=== PATIENT | male | born 1940 | race Caucasian/White ===

== ENCOUNTER 2018-12-11 09:45 | Inpatient (IN) | payer MEDICARE ==
[~2018-12-11] VITALS: Ht 177.8 cm; Wt 61.8 kg
[~2018-12-11 09:45] MED LIST changes: -EPA FISH OIL1 SGL PO; -GAS RELIEF180 MG PO; -IPRATROPIUM BROM3 M1 IH; -IRON TABLETS325 MG PO
--- NOTE | 2018-12-11 11:00 | NUR ---
Pt arrived to room 352 via with [facility] staff. Pt transferred from the WC to the chair with the assistance on one. Oriented to room and call light system. Will complete assessment. Pt is sitting up in the chair and he denies further needs. Call light within reach, will continue to monitor.
[2018-12-11 11:02] VITALS: BP 93/50; PULSE 83; TEMP 98.6
[2018-12-11 11:42] LABS: MEAN CELL VOLUME 100 fl (80.0-100.0); MEAN CORPUSCULAR HGB CONC 32 g/dl (33.0-37.0); PLATELET COUNT 297 K/mm3 (130-400); RED BLOOD COUNT 2.42 M/mm3 (4.20-5.60); REDCELL DISTRIBUTION WIDTH-CV 15.6 % (11.5-14.5)
[2018-12-11 11:43] LABS: HEMATOCRIT 24.1 % (42.0-52.0); HEMOGLOBIN 7.7 g/dl (13.5-18.0); MEAN CORPUSCULAR HEMOGLOBIN 32 pg (27.0-31.0)
[2018-12-11 11:51] LABS: CALCIUM 8.2 mg/dL (8.4-10.2); CREATININE, serum 1.03 (0.66-1.25); POTASSIUM 3.9 mmol/L (3.4-5.0); TOTAL PROTEIN 6.4 gm/dL (6.4-8.2)
[2018-12-11 11:55] LABS: ANISOCYTOSIS 1+; BAND 2 % (0-10); LYMPHOCYTE 1 % (20.0-51.0); MYELOCYTE 1 % (0-0); NEUTROPHILS 95 % (42.0-75.2); PLATELET ESTIMATE NORMAL (NORMAL)
[2018-12-11 11:57] LABS: TOXIC GRANULATION PRESENT
[2018-12-11] MEDS ORDERED: IRON TABLETS325 MG PO (12:30)
[2018-12-11] MEDS ORDERED: EPA FISH OIL1 SGL PO (12:32)
[2018-12-11] MEDS ORDERED: IPRATROPIUM BROM3 M1 IH (12:46)
[2018-12-11] MEDS ORDERED: RT ADVAIR 228 DISKUS IH (12:52)
[2018-12-11] MEDS ORDERED: GAS RELIEF180 MG PO (13:46)
[2018-12-11 15:41] LABS: GLUCOSE,PLEURAL FLUID 108 mg/dL; TOTAL PROTEIN,PLEURAL FLUID 4.2 gm/dL
[2018-12-11 17:34] VITALS: BP 97/74; PULSE 103; TEMP 98.8
--- NOTE | 2018-12-11 18:59 | NUR ---
Since arriving to the floor the pt has been resting on and off. He had R sided thoracentesis this afternoon and is feeling well afterwards. No increased need for O2 determined. Pt has had family at the bedside; all questions answered. Pt is sitting up in the bed eating his dinner at this time and he denies further needs. Call light within reach. Report given to SCOTTY Alicia.
[2018-12-11 19:47] VITALS: BP 132/56; PULSE 113; TEMP 98.2
--- NOTE | 2018-12-11 21:00 | NUR ---
Completed assessment and medication administration; PT tolerated call cares well; PT A&Ox4, BS active x4, lungs CTAB with RLL diminished, right hip incision well approximated without acute S/S of infection, redness to right coccyx and buttock without blanching; PT continues to have NS running at 60ml/hr to RFA IV; 2L of fluid removed from thoracentesis on 12/11/18; No further acute changes or concerns reported or assessed at time of exit; PT able to return to a comfortable position in bed with personal items and call light within reach; Will continues to monitor. CDA
[2018-12-11 23:46] VITALS: BP 132/66; PULSE 100; TEMP 98
[2018-12-12] VITALS (10 sets, daily range): BP systolic 109–143; BP diastolic 51–77; PULSE 81–91; TEMP 97–98.3
--- NOTE | 2018-12-12 02:12 | NUR ---
PATIENT REFUSED SVN TREATMENT AND WILL CALL CALF SKINNER IF NEEDED.
[2018-12-12 07:14] LABS: BASO % 0.1 % (0.0-2.0); EOS % 0.1 % (0-4.0); GRAN # 5.9 (1.4-6.5); GRAN % 87.7 % (42.2-75.2); LYMPH # 0.3 (1.2-3.4); MEAN CELL VOLUME 97 fl (80.0-100.0); MEAN CORPUSCULAR HGB CONC 32 g/dl (33.0-37.0); MEAN PLATELET VOLUME 10.2 fl (7.4-10.4); MONO # 0.5 (0.1-0.6); MONO % 7.1 % (1.7-9.3); PLATELET COUNT 280 K/mm3 (130-400); RED BLOOD COUNT 2.33 M/mm3 (4.20-5.60); REDCELL DISTRIBUTION WIDTH-CV 15.6 % (11.5-14.5)
[2018-12-12 07:18] LABS: HEMATOCRIT 22.7 % (42.0-52.0); HEMOGLOBIN 7.3 g/dl (13.5-18.0); MEAN CORPUSCULAR HEMOGLOBIN 31 pg (27.0-31.0)
[2018-12-12 07:39] LABS: CALCIUM 8.1 mg/dL (8.4-10.2); CREATININE, serum 0.73 (0.66-1.25); POTASSIUM 3.9 mmol/L (3.4-5.0)
--- NOTE | 2018-12-12 10:12 | NUR ---
WILMER and SW student met with the patient to discuss discharge plan. The patient has been residing at [facility] for a SNF stay. The patient reports that he plans to return back to [facility] upon discharge. WILMER presented and explained the patient choice form to the patient. The patient verbalized understanding, signed, and he was provided a copy. The patient does not have advanced directives in EMR, but he states that he does have them completed and that [facility] should have a copy of his DPOA-HC. He states that his niece, Reanna, is his DPOA-HC and that she lives here in [place]. WILMER attempted to contact Juan David at [facility] to request a copy and to update. WILMER left a voicemail. SW to fax updates to [facility] and continue to follow.
--- NOTE | 2018-12-12 12:02 | NUR ---
Assessment complete and charted. Patient A&O, denies pain or discomfort. VSS 1L NC no report SOB. IV CDI. Port left upper chest, not accessed. Patient sitting up in recliner. no further needs expressed from patient. Call light within reach
--- NOTE | 2018-12-12 13:05 | NUR ---
PT INTO ROOM, PLACED ON THE CT BED, MONITORING EQUIPMENT PLACED.
--- NOTE | 2018-12-12 13:20 | NUR ---
PT WAS GIVEN 0.5 MG VERSED A ND 25 MCG FENTANYL
--- NOTE | 2018-12-12 13:25 | NUR ---
PROCEDURE COMPLETED. PT INSTRUCTED TO BE VERY CAREFUL OF THE CHEST TUBE. PT VERBALZIED UNDERSTANDING. PT TAKEN UPSTAIRS IN WHEELCHAIR.
--- NOTE | 2018-12-12 13:47 | NUR ---
CALLED REPORT TO BINU FAJARDO
--- NOTE | 2018-12-12 15:04 | NUR ---
Juan David, at [facility], contacted WILMER and informed that they do not have a copy of his DPOA-HC. WILMER contacted the patient's niece, Reanna. Reanna reports that the patient actually does not have a DPOA-HC completed and that they have been meaning to do one and were interested in completing one here. WILMER provided a DPOA-HC form to the patient. The patient designated his niece (Reanna) and nephew (Donovan). SW and RT witnessed the patient's signature. The patient and patient's niece were provided with the original and some copies. A copy was placed in the patient's chart and WILMER faxed [facility] a copy. WILMER also faxed updates to [facility]. WILMER to continue to follow.
--- NOTE | 2018-12-12 19:00 | NUR ---
REPORT GIVEN TO SCOTTY WILLAMS.
[2018-12-13 00:09] VITALS: BP 129/67; PULSE 82; TEMP 97.9
--- NOTE | 2018-12-13 01:21 | NUR ---
Completed assessment and medication administration; PT tolerated all cares well; PT denies further needs or concerns at time of exit; PT A&Ox4, BS active x4, Rt heimlich valve chest tube in place, minimal c/o RLE pain, left side unaccessed port, RT sided pacemaker; PT able to return to comfortable position in bed with personal items and call light within reach; Will continue to monitor. CDA
--- NOTE | 2018-12-13 03:05 | NUR ---
PT resting well in bed; NS running at 60ml/hr to RFA; No further assessed or verbalized concerns at times of rounds; PT assisted to a comfortable position in bed with personal items and call light within reach; Will continue to monitor. CDA
[2018-12-13 03:50] VITALS: BP 117/67; PULSE 81; TEMP 98
--- NOTE | 2018-12-13 06:41 | NUR ---
Report given to SCOTTY Pires; No significant changes or concerns at time of shift change. CDA
[2018-12-13 07:36] VITALS: BP 113/62; PULSE 85; TEMP 98.7
[2018-12-13 07:47] LABS: BASO % 0.3 % (0.0-2.0); EOS % 0.3 % (0-4.0); GRAN # 5.4 (1.4-6.5); GRAN % 83.9 % (42.2-75.2); LYMPH # 0.4 (1.2-3.4); LYMPH % 5.6 % (20.0-51.0); MEAN CELL VOLUME 99 fl (80.0-100.0); MEAN CORPUSCULAR HGB CONC 31 g/dl (33.0-37.0); MEAN PLATELET VOLUME 10.2 fl (7.4-10.4); MONO # 0.6 (0.1-0.6); PLATELET COUNT 302 K/mm3 (130-400); RED BLOOD COUNT 2.52 M/mm3 (4.20-5.60); REDCELL DISTRIBUTION WIDTH-CV 15.7 % (11.5-14.5)
[2018-12-13 07:48] LABS: HEMATOCRIT 24.9 % (42.0-52.0); HEMOGLOBIN 7.8 g/dl (13.5-18.0); MEAN CORPUSCULAR HEMOGLOBIN 31 pg (27.0-31.0)
[2018-12-13 07:53] LABS: CALCIUM 8.4 mg/dL (8.4-10.2); CREATININE, serum 0.71 (0.66-1.25); POTASSIUM 3.8 mmol/L (3.4-5.0)
[2018-12-13 10:59] VITALS: BP 111/63; PULSE 86; TEMP 98.7
[2018-12-13 15:23] VITALS: BP 121/53; PULSE 88; TEMP 97.8
[2018-12-13 19:44] VITALS: BP 129/70; PULSE 94; TEMP 97.3
--- NOTE | 2018-12-13 21:00 | NUR ---
Completed assessment and medication administration; PT tolerated all cares well; Coccyx dressing changed; NS continues to run at 60ml/hr to RFA IV; PT A&Ox4, BS active x4, lungs CTAB with bilateral diminished bases, O2 via NC; No further assessed or verbalized concerns at time of exit; PT assisted to comfortable position in bed with personal items and call light within reach; Tentative plan for continued Hiemlich chest tube for improving right side pneumothorax; reimaging to reassess
[2018-12-14] VITALS (10 sets, daily range): BP systolic 113–141; BP diastolic 60–79; PULSE 76–113; TEMP 97.8–98.7
--- NOTE | 2018-12-14 03:18 | NUR ---
PT resting well in bed; NS running at 60ml/hr as ordered; No further assessed or verbalized concerns at time of rounds; PT resting in comfortable position in bed with personal items and call light within reach; Will continue to monitor. CDA
--- NOTE | 2018-12-14 06:48 | NUR ---
Report given to SCOTTY Pires and SCOTTY Bach; No significant change or concerns at time of shift change. CDA
[2018-12-14 08:51] LABS: BASO % 0.3 % (0.0-2.0); EOS % 0.4 % (0-4.0); GRAN # 5.6 (1.4-6.5); GRAN % 80.5 % (42.2-75.2); LYMPH # 0.5 (1.2-3.4); LYMPH % 7.8 % (20.0-51.0); MEAN CELL VOLUME 98 fl (80.0-100.0); MEAN CORPUSCULAR HGB CONC 32 g/dl (33.0-37.0); MEAN PLATELET VOLUME 9.9 fl (7.4-10.4); MONO # 0.7 (0.1-0.6); MONO % 10.4 % (1.7-9.3); PLATELET COUNT 320 K/mm3 (130-400); RED BLOOD COUNT 2.69 M/mm3 (4.20-5.60); REDCELL DISTRIBUTION WIDTH-CV 15.9 % (11.5-14.5)
[2018-12-14 08:54] LABS: HEMATOCRIT 26.3 % (42.0-52.0); HEMOGLOBIN 8.3 g/dl (13.5-18.0); MEAN CORPUSCULAR HEMOGLOBIN 31 pg (27.0-31.0)
[2018-12-14 09:01] LABS: CALCIUM 8.6 mg/dL (8.4-10.2); CREATININE, serum 0.72 (0.66-1.25)
--- NOTE | 2018-12-14 20:15 | NUR ---
Patient helped from recliner to bed, assessment copmleted. C/O 6/10 pain to right hip, given pain medication. VSS, afebrile. On 2 L oxygen via NC. IVF flushed, no complications. No further needs at this time.
[2018-12-15 03:56] VITALS: BP 137/71; PULSE 82; TEMP 98.4
--- NOTE | 2018-12-15 04:53 | NUR ---
Pt slept on/off last night, VSS, afebrile. NO needs at this time.
--- NOTE | 2018-12-15 06:52 | NUR ---
REPORT GIVEN TO SCOTTY LIU
[2018-12-15 07:50] LABS: BASO % 0.4 % (0.0-2.0); EOS # 0.1 (0.0-0.7); EOS % 1.2 % (0-4.0); GRAN # 5.9 (1.4-6.5); GRAN % 76.8 % (42.2-75.2); LYMPH # 0.8 (1.2-3.4); LYMPH % 10.6 % (20.0-51.0); MEAN CELL VOLUME 99 fl (80.0-100.0); MEAN CORPUSCULAR HGB CONC 31 g/dl (33.0-37.0); MEAN PLATELET VOLUME 10.2 fl (7.4-10.4); MONO # 0.8 (0.1-0.6); MONO % 9.8 % (1.7-9.3); PLATELET COUNT 353 K/mm3 (130-400); RED BLOOD COUNT 2.78 M/mm3 (4.20-5.60); REDCELL DISTRIBUTION WIDTH-CV 15.9 % (11.5-14.5)
[2018-12-15 07:55] LABS: HEMATOCRIT 27.5 % (42.0-52.0); HEMOGLOBIN 8.5 g/dl (13.5-18.0); MEAN CORPUSCULAR HEMOGLOBIN 31 pg (27.0-31.0)
--- NOTE | 2018-12-15 08:03 | NUR ---
Pt assessment complete. Pt sitting up in the chair upon entry, he is A/O x3. His breathing is even and unlabored on 2L O2 via NC. Pt has occasional dysnpea on exertion. Chest tube dressing has small amount of blood. Pt has occasional pain to this site with coughing. Also reporting pain to the R hip, requesting PRN pain medications before PT. POC discussed with patient, plan to do a thoracentesis this AM. Pt denies needs, call light within reach. Will continue to monitor.
[2018-12-15 08:11] LABS: CALCIUM 8.7 mg/dL (8.4-10.2); CREATININE, serum 0.9 (0.66-1.25)
[2018-12-15 08:47] VITALS: BP 113/67; PULSE 94; TEMP 98.6
--- NOTE | 2018-12-15 09:50 | NUR ---
DR MELENDEZ ORDERED CPFT PATIENT HAD ALREADY HAD INHALERS AND BREATHING TREATMENT DR MELENDEZ OK WITH JUST DOING PRETESTING ON CPFT.
[2018-12-15 11:59] VITALS: BP 117/60; PULSE 92; TEMP 97.7
--- NOTE | 2018-12-15 14:28 | NUR ---
Pt assisted in walking down the hallway to surgical desk and back. Pt ambulated well, mild dyspnea present. Pt denies pain. Pt sitting in recliner, call light within reach.
[2018-12-15 15:33] VITALS: BP 102/70; PULSE 107; TEMP 98
--- NOTE | 2018-12-15 16:42 | NUR ---
The patient is to transfer to [facility] today, 12/15. The patient's nurse notified the patient's nephew. SW attempted to contact Juan David at [facility] to update. WILMER left a voicemail. No additional needs at this time.
--- NOTE | 2018-12-15 17:00 | NUR ---
POC discussed with patient, his niece was updated per patient's request. Information on patient's diagnosis given to the patient. He denies any further needs, call light within reach.
--- NOTE | 2018-12-15 19:17 | NUR ---
Report given to Donna at [facility]. Pt had uneventful day. Intermittent pain to RLE, relieved with PRN pain medication. Pt walked well with PT today. VSS. POC discussed with patient and his niece who verbalize understanding. Pt awaiting EMS ride at this time.
--- NOTE | 2018-12-15 19:22 | NUR ---
Patient resting in recliner with family at bedside, waiting for transfer. Assessment completed, pt denies pain. Heimlich chest tube stillin place, no drainage. All belongings packed away and with patient or family. No further needs at this time.
[2018-12-15 19:23] VITALS: BP 102/70; PULSE 107; TEMP 98
--- NOTE | 2018-12-15 20:15 | NUR ---
PT LEFT WITH EMS TO TRANSFER TO .
== END 2018-12-15 20:15 | disposition short-term general hospital (02) | DRG 187 ==
LOC: COL.RAD 09:45 → MEDICAL 10:33
PROVIDERS: Physician Assistant; ADMIT Internal Medicine
PROC: 0W993ZZ Drainage of Right Pleural Cavity, Percutaneous Approach (ICD-10-PCS; principal; 2018-12-11)
DX: J90 Pleural effusion, not elsewhere classified (principal); E87.1 Hypo-osmolality and hyponatremia; J95.811 Postprocedural pneumothorax; I25.10 Atherosclerotic heart disease of native coronary artery without angina pectoris; E78.5 Hyperlipidemia, unspecified; F32.9 Major depressive disorder, single episode, unspecified; N40.0 Benign prostatic hyperplasia without lower urinary tract symptoms; G47.00 Insomnia, unspecified; D64.9 Anemia, unspecified; M21.371 Foot drop, right foot; G62.9 Polyneuropathy, unspecified; I95.9 Hypotension, unspecified; S72.142D Displaced intertrochanteric fracture of left femur, subsequent encounter for closed fracture with routine healing; X58.XXXD Exposure to other specified factors, subsequent encounter; K21.9 Gastro-esophageal reflux disease without esophagitis; Y83.8 Other surgical procedures as the cause of abnormal reaction of the patient, or of later complication, without mention of misadventure at the time of the procedure; Y92.239 Unspecified place in hospital as the place of occurrence of the external cause; B96.5 Pseudomonas (aeruginosa) (mallei) (pseudomallei) as the cause of diseases classified elsewhere; J44.9 Chronic obstructive pulmonary disease, unspecified; Z79.82 Long term (current) use of aspirin; Z95.5 Presence of coronary angioplasty implant and graft; Z85.828 Personal history of other malignant neoplasm of skin; Z85.118 Personal history of other malignant neoplasm of bronchus and lung; Z95.0 Presence of cardiac pacemaker; Z88.0 Allergy status to penicillin; Z87.891 Personal history of nicotine dependence
CPT/HCPCS: 99231-AI; 99232-AI; 99233-AI; 99239; A4216; G0378; G0379; J0692; J0696; J2250; J3010; J7030; J7512

== ENCOUNTER → 2018-12-11 | Outpatient (CLI) | payer MEDICARE ==
[~2018-12-11] MED LIST: ASPI325T6 PO; ATROVENTNS0.03% NS; B-121000 MCG PO; DESYREL 50MG50 MG PO; EPA FISH OIL1 SGL PO; FERROUS SU325 MG/TAB PO; FORFIVO XL450 MG PO; GAS RELIEF180 MG PO; IPRATROPIUM BROM3 M1 IH; IRON TABLETS325 MG PO; LIPITOR 40MG TA40 MG; LIPITOR 40MG TA40 MG PO; MASON NATURAL1200 MG PO; MIRALAX510G PO; MUCUS RELIEF400 M1 PO; MULTI VITAMINS1 TAB PO; NORCO 325 MG-51 TAB PO; OSCAL 500 TAB500 MG PO; PREDNISONE1 MG; PROAIR HFA0.09 MG/AC IH; PROTONIX 40MG T40 MG PO; PROVENTIL0.09 MG/A1; RT ADVAIR 128 DISKUS; RT ADVAIR 228 DISKUS IH; RT SPIRIVA18 MCG; SENOKOT S 50 MG1 TAB PO; SPIRIVA RE2.5 MCG/Ac IH; TUMS ULTRA ST1000 MG PO; TYLENOL 325MG325 MG PO; VITAMINC1000TA PO; VITAMIND3 5000 PO
[2018-12-11 08:46] LABS: MEAN CELL VOLUME 98 fl (80.0-100.0); MEAN CORPUSCULAR HGB CONC 33 g/dl (33.0-37.0); PLATELET COUNT 284 K/mm3 (130-400); RED BLOOD COUNT 2.44 M/mm3 (4.20-5.60); REDCELL DISTRIBUTION WIDTH-CV 15.6 % (11.5-14.5)
[2018-12-11 08:47] LABS: HEMATOCRIT 23.9 % (42.0-52.0); HEMOGLOBIN 7.8 g/dl (13.5-18.0); MEAN CORPUSCULAR HEMOGLOBIN 32 pg (27.0-31.0)
[2018-12-11 08:52] LABS: CALCIUM 8.1 mg/dL (8.4-10.2); CREATININE, serum 1.06 (0.66-1.25)
[2018-12-11 09:00] LABS: ANISOCYTOSIS 1+; BAND 1 % (0-10); LYMPHOCYTE 1 % (20.0-51.0); NEUTROPHILS 95 % (42.0-75.2); PLATELET ESTIMATE NORMAL (NORMAL); TOXIC GRANULATION PRESENT
== END ==
LOC: COL.LAB 08:05
PROVIDERS: Family Medicine
DX: R05 Cough (principal)

== ENCOUNTER → 2019-01-03 | Outpatient (REF) ==
[~2019-01-03] MED LIST changes: +EPA FISH OIL1 SGL PO; +GAS RELIEF180 MG PO; +IPRATROPIUM BROM3 M1 IH; +IRON TABLETS325 MG PO
[2019-01-03 22:55] LABS: COLLECTION METHOD CLEAN CATCH
[2019-01-03 23:12] LABS: MUCOUS Present /lpf; PH 5 (5-8); SQUAMOUS EPITHELIAL None Seen /hpf; URINE APPEARANCE Cloudy; URINE BACTERIA None Seen /hpf; URINE BILIRUBIN Negative (NEGATIVE); URINE BLOOD Negative (NEGATIVE); URINE CALCIUM OXALATE CRYSTAL Present /hpf; URINE COLOR Amber; URINE GLUCOSE Negative (NEGATIVE); URINE KETONE Negative (NEGATIVE); URINE LEUKOCYTE ESTERASE 3+ (NEGATIVE); URINE NITRATE Negative (NEGATIVE); URINE PROTEIN(semi-quant) 1+ (NEGATIVE); URINE UROBILINOGEN Negative (NEGATIVE); URINE WBC >50 /hpf
== END ==
LOC: ZCOL.LAB 22:55
PROVIDERS: Family Medicine
DX: R39.198 Other difficulties with micturition (principal)

== ENCOUNTER → 2019-01-06 | Outpatient (CLI) | payer MEDICARE ==
[2019-01-06 18:02] LABS: BASO % 0.5 % (0.0-2.0); EOS # 0.2 (0.0-0.7); EOS % 2.7 % (0-4.0); GRAN # 5.4 (1.4-6.5); GRAN % 72.1 % (42.2-75.2); LYMPH % 12.7 % (20.0-51.0); MEAN CELL VOLUME 96 fl (80.0-100.0); MEAN CORPUSCULAR HEMOGLOBIN 30 pg (27.0-31.0); MEAN CORPUSCULAR HGB CONC 31 g/dl (33.0-37.0); MONO # 0.9 (0.1-0.6); MONO % 11.6 % (1.7-9.3); PLATELET COUNT 303 K/mm3 (130-400); RED BLOOD COUNT 3.34 M/mm3 (4.20-5.60); REDCELL DISTRIBUTION WIDTH-CV 14.7 % (11.5-14.5)
[2019-01-06 18:12] LABS: CALCIUM 9.1 mg/dL (8.4-10.2); CREATININE, serum 0.74 (0.66-1.25); POTASSIUM 4.4 mmol/L (3.4-5.0)
[2019-01-06 18:15] LABS: HEMATOCRIT 31.9 % (42.0-52.0)
== END ==
LOC: ZCOL.LAB 16:29
PROVIDERS: Family Medicine
DX: Z51.81 Encounter for therapeutic drug level monitoring (principal); D50.0 Iron deficiency anemia secondary to blood loss (chronic)

== ENCOUNTER 2019-04-03 08:44 | Day surgery (SDC) | payer MEDICARE ==
[~2019-04-03] VITALS: Ht 177.8 cm; Wt 63.0 kg
[2019-04-03] MEDS ORDERED: LIPITOR 40MG TA40 MG PO (09:35)
[2019-04-03] MEDS ORDERED: ELIQUIS 5MG PO (09:35)
[2019-04-03] MEDS ORDERED: MULTI VITAMINS1 TAB PO (09:38)
[2019-04-03] MEDS ORDERED: OYSTER SHELL C500 MG PO (09:40)
[2019-04-03] MEDS ORDERED: MUCUS RELIEF400 M1 PO (09:41)
[2019-04-03] MEDS ORDERED: SENNA-S 50 MG-81 TAB PO (09:42)
[2019-04-03] MEDS ORDERED: ASPIRIN 81M81 MG/TA2 PO (09:44)
[2019-04-03] MEDS ORDERED: NEURONTIN300 MG/CAP PO (09:45)
[2019-04-03] MEDS ORDERED: FLOMAX 0.40.4 MG/CAP PO (09:45)
[2019-04-03] MEDS ORDERED: OXY IR5 MG PO (09:46)
[2019-04-03] MEDS ORDERED: BIOTENE DRY M1000 ML MM (09:49)
[2019-04-03] MEDS ORDERED: VITAMINC1000TA PO (09:49)
[2019-04-03 09:51] VITALS: BP 114/71; PULSE 83; TEMP 99.3
--- NOTE | 2019-04-03 10:00 | NUR ---
Dr. Phoenix in room to see pt. Pt is in SR and ANNI/CV cancelled per Dr. Phoenix.
--- NOTE | 2019-04-03 10:45 | NUR ---
Pt discharged per w/c by nurse with niece.
== END 2019-04-03 10:50 | disposition home or self-care (01) ==
LOC: COL.CAR 08:44
DX: I48.0 Paroxysmal atrial fibrillation (principal); I11.0 Hypertensive heart disease with heart failure; I50.9 Heart failure, unspecified; I25.10 Atherosclerotic heart disease of native coronary artery without angina pectoris; J44.9 Chronic obstructive pulmonary disease, unspecified; I25.2 Old myocardial infarction; G47.33 Obstructive sleep apnea (adult) (pediatric); K21.9 Gastro-esophageal reflux disease without esophagitis; F32.9 Major depressive disorder, single episode, unspecified; F41.9 Anxiety disorder, unspecified; N40.0 Benign prostatic hyperplasia without lower urinary tract symptoms; Z88.0 Allergy status to penicillin; Z88.1 Allergy status to other antibiotic agents; Z79.82 Long term (current) use of aspirin; Z95.0 Presence of cardiac pacemaker; Z90.2 Acquired absence of lung [part of]; Z82.49 Family history of ischemic heart disease and other diseases of the circulatory system; Z87.891 Personal history of nicotine dependence; Z85.828 Personal history of other malignant neoplasm of skin
CPT/HCPCS: J1644; J2250; J2704

== ENCOUNTER → 2019-04-21 | Outpatient (CLI) | payer MEDICARE ==
[~2019-04-21] MED LIST changes: +ASPIRIN 81M81 MG/TA2 PO; +BIOTENE DRY M1000 ML MM; +ELIQUIS 5MG PO; +FLOMAX 0.40.4 MG/CAP PO; +NEURONTIN300 MG/CAP PO; +OXY IR5 MG PO; +OYSTER SHELL C500 MG PO; +SENNA-S 50 MG-81 TAB PO
== END ==
LOC: COL.RAD 12:28
DX: M85.811 Other specified disorders of bone density and structure, right shoulder (principal)

== ENCOUNTER → 2019-07-13 | Outpatient (CLI) | payer MEDICARE ==
[2019-07-13 18:10] LABS: BASO % 0.2 % (0.0-2.0); EOS # 0.1 (0.0-0.7); EOS % 0.7 % (0-4.0); GRAN # 11.4 (1.4-6.5); GRAN % 84.7 % (42.2-75.2); HEMOGLOBIN 10.3 g/dl (13.5-18.0); LYMPH % 7.2 % (20.0-51.0); MEAN CELL VOLUME 93 fl (80.0-100.0); MEAN CORPUSCULAR HEMOGLOBIN 30 pg (27.0-31.0); MEAN CORPUSCULAR HGB CONC 32 g/dl (33.0-37.0); MEAN PLATELET VOLUME 11.3 fl (7.4-10.4); MONO # 0.9 (0.1-0.6); MONO % 6.7 % (1.7-9.3); PLATELET COUNT 206 K/mm3 (130-400); RED BLOOD COUNT 3.45 M/mm3 (4.20-5.60); REDCELL DISTRIBUTION WIDTH-CV 14.1 % (11.5-14.5)
[2019-07-13 18:20] LABS: HEMATOCRIT 32.1 % (42.0-52.0)
[2019-07-13 18:36] LABS: ALBUMIN 3.3 gm/dL (3.5-5.0); BILIRUBIN,TOTAL 0.8 mg/dL (0.0-1.0); CALCIUM 8.7 mg/dL (8.4-10.2); CREATININE, serum 1.05 (0.66-1.25); POTASSIUM 3.7 mmol/L (3.4-5.0); TOTAL PROTEIN 6.7 gm/dL (6.4-8.2)
== END ==
LOC: ZCOL.LAB 16:56
PROVIDERS: Family Medicine
DX: R19.7 Diarrhea, unspecified (principal)

== ENCOUNTER → 2019-07-14 | Outpatient (CLI) | payer MEDICARE | LOC: ZCOL.LAB 16:48 | DX: R19.7 Diarrhea, unspecified (principal) ==

== ENCOUNTER 2019-10-01 12:10 | Day surgery (SDC) | payer MEDICARE ==
[2019-10-01] VITALS (10 sets, daily range): BP systolic 102–133; BP diastolic 71–81; PULSE 72–96; TEMP 97.7
[~2019-10-01] VITALS: Ht 177.8 cm; Wt 72.2 kg
[2019-10-01] MEDS ORDERED: CORDARONE200 MG/TAB PO (12:25)
[2019-10-01] MEDS ORDERED: FLOMAX 0.40.4 MG/CAP PO (12:28)
[2019-10-01 12:52] LABS: HEMOGLOBIN 11.2 g/dl (13.5-18.0); MEAN CELL VOLUME 91 fl (80.0-100.0); MEAN CORPUSCULAR HEMOGLOBIN 29 pg (27.0-31.0); MEAN CORPUSCULAR HGB CONC 32 g/dl (33.0-37.0); MEAN PLATELET VOLUME 10.2 fl (7.4-10.4); PLATELET COUNT 223 K/mm3 (130-400); RED BLOOD COUNT 3.81 M/mm3 (4.20-5.60); REDCELL DISTRIBUTION WIDTH-CV 15.2 % (11.5-14.5)
[2019-10-01 12:53] LABS: HEMATOCRIT 34.7 % (42.0-52.0)
[2019-10-01 12:58] LABS: INR 1.1 (0.8-3.0); PROTHROMBIN TIME 12.5 SECONDS (9.7-12.8)
[2019-10-01 13:00] LABS: PARTIAL THROMBOPLASTIN TIME 36.8 SECONDS (26.0-37.0)
[2019-10-01 13:01] LABS: CALCIUM 9.6 mg/dL (8.4-10.2); CREATININE, serum 0.86 (0.66-1.25)
[2019-10-01] MEDS ORDERED: CALCIUM/MAGNESI1 TAB PO (13:02)
[2019-10-01] MEDS ORDERED: ZOLOFT 50MG50 MG PO (13:10)
[2019-10-01] MEDS ORDERED: BIOTENE ORAL44.3 ML MM (13:13)
[2019-10-01] MEDS ORDERED: ATROVENT NASAL15 ML NS (13:17)
--- NOTE | 2019-10-01 14:33 | NUR ---
SEE MERGE DOCUMENTATION FOR MEDICATION ADMINISTRATION AND INTRA/POST PROCEDURE SEDATION ASSESSMENTS.
--- NOTE | 2019-10-01 15:33 | NUR ---
REPORT TAKEN FROM SCOTTY WILLAMS IN RADIO RIGGER.
--- NOTE | 2019-10-01 17:00 | NUR ---
Pts band was released 5 ml and active bleeding took place immediately. 5 ml was put back into the TR band. Will continue to monitor.
--- NOTE | 2019-10-01 17:30 | NUR ---
Pt tolerated intake with no N/V. Pt voiding with no complications. 5mls of air released from the TR band for a second time. D/C instructions reviewed with pt/niece. Pt/niece voice understanding. Site oozing after 5 min, 5mls of air put back into the TR band. Will continue to monitor.
--- NOTE | 2019-10-01 18:30 | NUR ---
5ml of air released, awaited 5 min and no longer oozing or actively bleeding. 2x2 gauze and coban applied to the right radial site. Pt up and ambulating in and around the unit with no complications. IV in the LA was discontinued with catheter tip intact, no phlebitis or infiltration. Pt was discharged via w/c to the care of [facility] in private vehicle with discharge and personal belongings in hand.
== END 2019-10-01 18:30 | disposition home or self-care (01) ==
LOC: COL.CAR 12:10
PROVIDERS: Internal Medicine Interventional Cardiology
DX: I25.10 Atherosclerotic heart disease of native coronary artery without angina pectoris (principal); R94.39 Abnormal result of other cardiovascular function study
CPT/HCPCS: J1644; J2250; J3010; Q9967

== ENCOUNTER 2020-02-13 21:59 | Inpatient (IN) | payer MEDICARE ==
[~2020-02-13] VITALS: Ht 177.8 cm; Wt 70.2 kg
[~2020-02-13 21:59] MED LIST changes: +ATROVENT NASAL15 ML NS; +BIOTENE ORAL44.3 ML MM; +CALCIUM/MAGNESI1 TAB PO; +CORDARONE200 MG/TAB PO; +ZOLOFT 50MG50 MG PO
[2020-02-14] VITALS (7 sets, daily range): BP systolic 102–124; BP diastolic 52–68; PULSE 68–89; TEMP 98.1–99.6
[2020-02-14 00:29] LABS: BASO % 0.3 % (0.0-2.0); EOS % 0.3 % (0-4.0); GRAN # 10.4 (1.4-6.5); GRAN % 82.5 % (42.2-75.2); HEMOGLOBIN 10.5 g/dl (13.5-18.0); LYMPH # 0.9 (1.2-3.4); LYMPH % 7.3 % (20.0-51.0); MEAN CELL VOLUME 93 fl (80.0-100.0); MEAN CORPUSCULAR HEMOGLOBIN 31 pg (27.0-31.0); MEAN CORPUSCULAR HGB CONC 33 g/dl (33.0-37.0); MEAN PLATELET VOLUME 11.1 fl (7.4-10.4); MONO # 1.1 (0.1-0.6); MONO % 8.6 % (1.7-9.3); PLATELET COUNT 138 K/mm3 (130-400); RED BLOOD COUNT 3.41 M/mm3 (4.20-5.60); REDCELL DISTRIBUTION WIDTH-CV 15.1 % (11.5-14.5)
[2020-02-14 00:30] LABS: HEMATOCRIT 31.6 % (42.0-52.0)
[2020-02-14 00:37] LABS: INR 1.4 (0.8-3.0); PROTHROMBIN TIME 15.8 SECONDS (9.7-12.8)
[2020-02-14 00:47] LABS: ALANINE AMINOTRANSFERASE 14 U/L (4-49); ALBUMIN 3.9 gm/dL (3.5-5.0); ALKALINE PHOSPHATASE 88 U/L (50-136); ANION GAP 8 mmol/L (7-16); AST,SGOT 26 U/L (15-37); BILIRUBIN,TOTAL 0.9 mg/dL (0.0-1.0); BLOOD UREA NITROGEN 26 mg/dL (9-20); CALCIUM 8.8 mg/dL (8.4-10.2); CARBON DIOXIDE 23 mmol/L (22-30); CHLORIDE 104 mmol/L (98-107); CREATININE, serum 1.32 (0.66-1.25); GLUCOSE 116 mg/dL (74-106); LIPASE 67 U/L (23-300); POTASSIUM 4.5 mmol/L (3.4-5.0); SODIUM 135 mmol/L (137-145); TOTAL PROTEIN 7.6 gm/dL (6.4-8.2)
[2020-02-14 00:56] LABS: TROPONIN-I < 0.012 ng/mL (0.000-0.035)
[2020-02-14 00:58] LABS: C-REACTIVE PROTEIN 18.9 mg/dL (0.0-0.9)
[2020-02-14 01:07] LABS: COLLECTION METHOD CLEAN CATCH
[2020-02-14 01:14] LABS: MUCOUS Present /lpf; PH 5 (5-8); SQUAMOUS EPITHELIAL 0-2 /hpf; URINE APPEARANCE Cloudy; URINE BACTERIA Many /hpf; URINE BILIRUBIN Negative (NEGATIVE); URINE BLOOD Negative (NEGATIVE); URINE COLOR Yellow; URINE GLUCOSE Negative (NEGATIVE); URINE KETONE Negative (NEGATIVE); URINE LEUKOCYTE ESTERASE 3+ (NEGATIVE); URINE NITRATE Positive (NEGATIVE); URINE PROTEIN(semi-quant) 1+ (NEGATIVE); URINE UROBILINOGEN Negative (NEGATIVE)
[2020-02-14] MEDS ORDERED: SYNTHROID0.05 MG/TA PO (02:46)
[2020-02-14] MEDS ORDERED: PACERONE100 MG PO (02:47)
--- NOTE | 2020-02-14 04:30 | NUR ---
Patient to medical room 305 with ED RN Nydia at this time. He is oriented to room and call light. Admission initial, admission B, COVID screen, Infectious disease screen, and suicid risk assessment complete at this time. Patient is alert and oriented, heart sounds normal/regular, lung sounds clear, no edema present. Patient does complain of mild pain in his back. Patient's earlobes appear bluish in color; Patient is satting 95% on RA and does not show any increased work of breathing. IV fluids initiated at this time. Left chest portacath flushes and draws blood well. Will continue to monitor.
[2020-02-14 07:00] LABS: BASO % 0.3 % (0.0-2.0); EOS # 0.1 (0.0-0.7); EOS % 0.5 % (0-4.0); GRAN % 78.7 % (42.2-75.2); HEMOGLOBIN 10.5 g/dl (13.5-18.0); LYMPH # 1.2 (1.2-3.4); LYMPH % 10.8 % (20.0-51.0); MEAN CELL VOLUME 95 fl (80.0-100.0); MEAN CORPUSCULAR HEMOGLOBIN 31 pg (27.0-31.0); MEAN CORPUSCULAR HGB CONC 32 g/dl (33.0-37.0); MEAN PLATELET VOLUME 11.3 fl (7.4-10.4); MONO % 8.7 % (1.7-9.3); PLATELET COUNT 142 K/mm3 (130-400); RED BLOOD COUNT 3.43 M/mm3 (4.20-5.60); REDCELL DISTRIBUTION WIDTH-CV 15.3 % (11.5-14.5)
--- NOTE | 2020-02-14 07:00 | NUR ---
Pt is resting in bed at this time. In need of water, and is very hungry. Contacted doctor for diet order. Pt has a cane, and ambulates to the restroom with help. The patient currently denies any pain or issues at this time. Call light is within reach, no further concerns at this time.
[2020-02-14 07:06] LABS: HEMATOCRIT 32.6 % (42.0-52.0)
[2020-02-14 07:13] LABS: CALCIUM 8.7 mg/dL (8.4-10.2); CREATININE, serum 1.21 (0.66-1.25); POTASSIUM 4.3 mmol/L (3.4-5.0)
--- NOTE | 2020-02-14 17:45 | NUR ---
Pt has had an uneventful day. Pt has had two bouts of diarrhea, GI panel has been ordered and sent down to lab. Pt otherwise is stable. Afebrile today, and has been ambulating to the bathroom with assistance. Pt has had some mild pain relieved by acetaminophen. Pt is rather pleasant to take care of. No other concerns. Call light within reach.
--- NOTE | 2020-02-14 19:11 | NUR ---
Report given to SCOTTY Samuels.
--- NOTE | 2020-02-14 19:45 | NUR ---
Pt assessment completed and documented.
--- NOTE | 2020-02-14 19:48 | NUR ---
Pt assessment completed and documented. Pt resting in bed watching television at this time. Pt alert and oriented x4. Denies pain. IVF infusing per orders to left chest portacath without complications. Pt denies any needs at this time. Call light within reach. Will continue to monitor.
[2020-02-14 20:03] LABS: CLOSTRIDIUM DIFF A/B NEG; CLOSTRIDIUM DIFF A/B INTERP No C.diff present
--- NOTE | 2020-02-15 02:35 | NUR ---
Pt awake in bed at this time asking for urinal. Urinal provided. Pt denies pain. IVF infusing. Fall precautions in place. Bed alarm on. Call light within reach.
[2020-02-15 03:29] VITALS: BP 129/80; PULSE 92; TEMP 98.1
--- NOTE | 2020-02-15 05:01 | NUR ---
Pt had uneventful shift. Pt rested on and off throughout the night. Pt up a few times to use urinal at bedside. Denied pain during the night. IVF infusing to portacath without compliations. Pt denies any needs at this time. Bed alarm on. Call light within reach.
[2020-02-15 07:39] VITALS: BP 117/68; PULSE 72; TEMP 98.1
--- NOTE | 2020-02-15 09:24 | NUR ---
Patient is alert and oriented. complain of 2/10 chronic back pain. verified he had a bowel movement and urinated this morning.
[2020-02-15 12:03] VITALS: BP 119/63; PULSE 75; TEMP 97.7
--- NOTE | 2020-02-15 14:33 | NUR ---
Career Technical Supervisor met with the patient to complete initial intake. The patient lives in [place] with his nieceEryn and her family. The patient denies DME use and is independent with ADLs. The patient's PCP is Dr. Plasencia and patient receives medications from [facility] and [facility] with no difficulties. The patient has advanced directivs in the EMR. They designate Reanna porter and Donovan Ortiz. The patient plans to return home at discharge. The patient has no questions or concerns about discharge. He will return home. There are no additional needs at this time.
[2020-02-15 16:22] VITALS: BP 137/65; PULSE 71; TEMP 98.3
--- NOTE | 2020-02-15 19:08 | NUR ---
Patient is alert and oriented. standby assist to ambulate. portcath on left chest. wbc is 11.4. patient report sob has improved. patient ambulate fine with/without cane. Patient should be discharged tomorrow if there are no new issues. Patient said he will be discharging home to his niece and nephew place. Report given to SCOTTY Samuels.
--- NOTE | 2020-02-15 19:30 | NUR ---
Pt assessment completed and documented. Pt resting in bed at this time watching television. Pt alert and oriented x4. Denies pain. IVF infusing per orders to left chest portacath. Portacath CDI and has good blood return. Pt denies any other needs at this time. Call light within reach. Fall precautions in place. Bed alarm on. Will continue to monitor.
[2020-02-15 20:23] VITALS: BP 123/67; PULSE 87; TEMP 98.6
[2020-02-16 00:18] VITALS: BP 120/65; PULSE 84; TEMP 97.4
[2020-02-16 03:48] VITALS: BP 122/62; PULSE 74; TEMP 97.4
--- NOTE | 2020-02-16 05:13 | NUR ---
Pt had uneventful shift. Pt rested well throughout the night. PRN tylenol given per orders for complaints of back pain. IVF infusing per orders to portacath. Pt denies any other needs at this time. Fall precautions in place. Bed alarm on. Call light within reach. Will continue to monitor
--- NOTE | 2020-02-16 07:04 | NUR ---
Report given to SCOTTY Dennis and SCOTTY Aponte
[2020-02-16 08:08] VITALS: BP 111/73; PULSE 92; TEMP 98
[2020-02-16 09:27] LABS: HEMOGLOBIN 10.2 g/dl (13.5-18.0); MEAN CELL VOLUME 93 fl (80.0-100.0); MEAN CORPUSCULAR HEMOGLOBIN 31 pg (27.0-31.0); MEAN CORPUSCULAR HGB CONC 33 g/dl (33.0-37.0); MEAN PLATELET VOLUME 10.7 fl (7.4-10.4); PLATELET COUNT 149 K/mm3 (130-400); RED BLOOD COUNT 3.31 M/mm3 (4.20-5.60); REDCELL DISTRIBUTION WIDTH-CV 14.8 % (11.5-14.5)
[2020-02-16 09:29] LABS: HEMATOCRIT 30.9 % (42.0-52.0)
[2020-02-16 09:36] LABS: CALCIUM 8.3 mg/dL (8.4-10.2); CREATININE, serum 0.77 (0.66-1.25); POTASSIUM 3.7 mmol/L (3.4-5.0)
--- NOTE | 2020-02-16 09:39 | NUR ---
PT RESTING IN BED UPON ENTERING ROOM. ASSESSMENT COMPLETED AND DOCUMENTED. NO ABNORMAL FINDINGS NOTED UPON ASSESSMENT. LUNG SOUNDS CLEAR TO AUSCULTATION. RESPIRATIONS REGULAR AND UNLABORED. UNPRODUCTIVE COUGH NOTED. PORT TO LEFT CHEST INTACT, BLOOD RETURN NOTED, FLUSHES EASILY. PT DENIES PAIN OR ANY CONCERNS AT THIS TIME. WILL CONTINUE TO MONITOR. CALL LIGHT WITHIN REACH.
[2020-02-16 10:17] LABS: BAND 3 % (0-10); LYMPHOCYTE 18 % (20.0-51.0); NEUTROPHILS 73 % (42.0-75.2); PLATELET ESTIMATE NORMAL (NORMAL)
[2020-02-16 10:20] LABS: ANISOCYTOSIS 1+
--- NOTE | 2020-02-16 10:48 | NUR ---
IV FLUIDS STOPPED AND DISCONNECTED PER ORDERS.
[2020-02-16] MEDS ORDERED: OMNICEF 300MG300 MG PO (11:03)
[2020-02-16 11:19] VITALS: BP 135/75; PULSE 69; TEMP 98.3
--- NOTE | 2020-02-16 14:39 | NUR ---
Discharge instructions discussed with patient, all questions answered. Port to left chest flushed with NS and heparin, deaccessed. Pt in stable condition, ready for discharge.
== END 2020-02-16 15:03 | disposition home or self-care (01) | DRG 689 ==
LOC: COL.ER 21:59 → MEDICAL 02-14 01:09 → ICU 02-14 07:16 → MEDICAL 02-14 07:16
PROVIDERS: Emergency Medicine; Physician Assistant; Student in an Organized Health Care Education/Training Program; ADMIT Family Medicine
DX: N39.0 Urinary tract infection, site not specified (principal); J18.9 Pneumonia, unspecified organism; N17.9 Acute kidney failure, unspecified; J44.9 Chronic obstructive pulmonary disease, unspecified; I25.10 Atherosclerotic heart disease of native coronary artery without angina pectoris; I48.0 Paroxysmal atrial fibrillation; N40.0 Benign prostatic hyperplasia without lower urinary tract symptoms; R09.02 Hypoxemia; Z66 Do not resuscitate; F32.9 Major depressive disorder, single episode, unspecified; E78.5 Hyperlipidemia, unspecified; K21.9 Gastro-esophageal reflux disease without esophagitis; B96.1 Klebsiella pneumoniae [K. pneumoniae] as the cause of diseases classified elsewhere; D64.9 Anemia, unspecified; E03.9 Hypothyroidism, unspecified; G47.00 Insomnia, unspecified; I49.5 Sick sinus syndrome; Z20.828 Contact with and (suspected) exposure to other viral communicable diseases; Z79.82 Long term (current) use of aspirin; Z95.0 Presence of cardiac pacemaker; Z95.5 Presence of coronary angioplasty implant and graft; Z85.118 Personal history of other malignant neoplasm of bronchus and lung; Z87.891 Personal history of nicotine dependence; Z88.0 Allergy status to penicillin; Z88.1 Allergy status to other antibiotic agents
CPT/HCPCS: 99222-AI; 99232-AI; J0692; J0696; J1644; J7030

== ENCOUNTER 2020-06-11 14:09 | Emergency (ER) | payer MEDICARE ==
[~2020-06-11] VITALS: Ht 180.3 cm; Wt 75.0 kg
[~2020-06-11 14:09] MED LIST changes: +OMNICEF 300MG300 MG PO; +PACERONE100 MG PO; +SYNTHROID0.05 MG/TA PO
[2020-06-11 14:18] VITALS: TEMP 97.7
[2020-06-11 15:03] LABS: BASO # 0.1 (0.0-0.2); EOS # 0.1 (0.0-0.7); EOS % 2.1 % (0-4.0); GRAN # 4.4 (1.4-6.5); GRAN % 70.6 % (42.2-75.2); HEMOGLOBIN 10.4 g/dl (13.5-18.0); LYMPH # 1.1 (1.2-3.4); LYMPH % 17.9 % (20.0-51.0); MEAN CELL VOLUME 96 fl (80.0-100.0); MEAN CORPUSCULAR HEMOGLOBIN 31 pg (27.0-31.0); MEAN CORPUSCULAR HGB CONC 33 g/dl (33.0-37.0); MEAN PLATELET VOLUME 10.5 fl (7.4-10.4); MONO # 0.5 (0.1-0.6); MONO % 7.8 % (1.7-9.3); PLATELET COUNT 209 K/mm3 (130-400); RED BLOOD COUNT 3.32 M/mm3 (4.20-5.60); REDCELL DISTRIBUTION WIDTH-CV 14.1 % (11.5-14.5)
[2020-06-11 15:06] LABS: HEMATOCRIT 31.7 % (42.0-52.0)
[2020-06-11 15:11] LABS: BILIRUBIN,TOTAL 0.5 mg/dL (0.0-1.0); C-REACTIVE PROTEIN 1.7 mg/dL (0.0-0.9); CALCIUM 8.9 mg/dL (8.4-10.2); CREATININE, serum 1.02 (0.66-1.25); POTASSIUM 4.2 mmol/L (3.4-5.0); TOTAL PROTEIN 7.3 gm/dL (6.4-8.2)
[2020-06-11] MEDS ORDERED: ELIQUIS 5MG PO (15:49)
[2020-06-11 15:51] LABS: INR 1.2 (0.8-3.0); PROTHROMBIN TIME 13.7 SECONDS (9.7-12.8)
[2020-06-11 15:54] LABS: PARTIAL THROMBOPLASTIN TIME 35.9 SECONDS (26.0-37.0)
[2020-06-11 16:14] VITALS: BP 113/82; PULSE 92
== END 2020-06-11 16:21 | disposition home or self-care (01) ==
LOC: COL.ER 14:09
PROVIDERS: Emergency Medicine
DX: M79.89 Other specified soft tissue disorders (principal); R79.1 Abnormal coagulation profile; I25.10 Atherosclerotic heart disease of native coronary artery without angina pectoris; J44.9 Chronic obstructive pulmonary disease, unspecified; Z85.118 Personal history of other malignant neoplasm of bronchus and lung; Z86.79 Personal history of other diseases of the circulatory system; Z95.0 Presence of cardiac pacemaker; Z88.0 Allergy status to penicillin; Z88.1 Allergy status to other antibiotic agents; Z79.82 Long term (current) use of aspirin

== ENCOUNTER 2020-07-06 10:52 | Emergency (ER) | payer MEDICARE ==
[~2020-07-06] VITALS: Ht 180.3 cm; Wt 75.0 kg
[2020-07-06 11:47] LABS: BASO % 0.4 % (0.0-2.0); EOS # 0.1 (0.0-0.7); EOS % 1.7 % (0-4.0); GRAN # 6.2 (1.4-6.5); GRAN % 74.1 % (42.2-75.2); LYMPH # 1.3 (1.2-3.4); LYMPH % 15.6 % (20.0-51.0); MEAN CELL VOLUME 98 fl (80.0-100.0); MEAN CORPUSCULAR HGB CONC 32 g/dl (33.0-37.0); MEAN PLATELET VOLUME 10.7 fl (7.4-10.4); MONO # 0.6 (0.1-0.6); MONO % 7.6 % (1.7-9.3); PLATELET COUNT 193 K/mm3 (130-400); REDCELL DISTRIBUTION WIDTH-CV 14.9 % (11.5-14.5)
[2020-07-06 11:50] LABS: HEMATOCRIT 28.5 % (42.0-52.0); HEMOGLOBIN 9.2 g/dl (13.5-18.0); MEAN CORPUSCULAR HEMOGLOBIN 32 pg (27.0-31.0)
[2020-07-06 11:52] LABS: INR 1.2 (0.8-3.0); PROTHROMBIN TIME 13.5 SECONDS (9.7-12.8)
[2020-07-06 12:04] LABS: ALBUMIN 3.9 gm/dL (3.5-5.0); BILIRUBIN,TOTAL 0.9 mg/dL (0.0-1.0); CREATININE, serum 0.96 (0.66-1.25); POTASSIUM 4.1 mmol/L (3.4-5.0)
[2020-07-06 12:34] VITALS: BP 110/64; PULSE 88; TEMP 98
== END 2020-07-06 12:36 | disposition home or self-care (01) ==
LOC: COL.ER 10:52
PROVIDERS: Emergency Medicine
DX: M79.661 Pain in right lower leg (principal); L81.9 Disorder of pigmentation, unspecified; D64.9 Anemia, unspecified; Z79.01 Long term (current) use of anticoagulants; Z88.0 Allergy status to penicillin; Z79.82 Long term (current) use of aspirin

== ENCOUNTER → 2020-11-23 | Outpatient (CLI) | payer MEDICARE ==
[~2020-11-23] MED LIST changes: +ALBUTEROL0.83 MG/ML IH; +ASPIRIN E.C. 8181 MG PO; +CALCIUM CARBON500 M1 PO; +CENTRUM SILVER1 TAB PO; +CYMBALTA 30MG30 MG PO; +CYMBALTA 60MG60 MG PO; +DEPAKOTE ER 25250 MG PO; +DULOXETINE HCL40 MG PO; +FERROUSAL325 MG PO; +FOSAMAX 70MG TA70 MG PO; +KEPPRA 500MG500 MG PO; +LIPITOR 80MG80 MG PO; +MAXIPIME2 GM IJ; +MUCINEX 60600 MG/TA1 PO; +OMEGA-3 1000 MG1 CAP PO; +PREDNISONE20 MG PO; +PRISTIQ 50 MG T50 MG PO; +TOPROL XL 25MG25 MG PO; +TYLENOL 500MG500 MG PO; +VITAMIN D31000 I1 PO; +ZOLOFT 100MG100 MG PO
== END ==
LOC: COL.CARD 09:42
DX: R56.9 Unspecified convulsions (principal)

== ENCOUNTER → 2020-11-30 | Outpatient (CLI) | payer MEDICARE | LOC: COL.RAD 07:55 | DX: G31.9 Degenerative disease of nervous system, unspecified (principal) | CPT/HCPCS: A9585 ==

== ENCOUNTER 2021-02-08 07:00 | Outpatient (RCR) | payer MEDICARE ==
[2021-02-04 08:59] VITALS: BP 96/53; PULSE 89; TEMP 98
[2021-02-05 07:45] VITALS: BP 99/62; PULSE 81; TEMP 98.4
[2021-02-06 08:03] VITALS: BP 89/50; PULSE 88; TEMP 97.6
[2021-02-07 07:55] VITALS: BP 99/50; PULSE 82; TEMP 97.6
[2021-02-07 19:08] VITALS: BP 105/65; PULSE 92; TEMP 98.1
[~2021-02-08] VITALS: Ht 180.3 cm; Wt 68.9 kg
[~2021-02-08 07:00] MED LIST changes: -ASPIRIN E.C. 8181 MG PO; -CALCIUM CARBON500 M1 PO; -CENTRUM SILVER1 TAB PO; -CYMBALTA 30MG30 MG PO; -CYMBALTA 60MG60 MG PO; -DEPAKOTE ER 25250 MG PO; -DULOXETINE HCL40 MG PO; -FERROUSAL325 MG PO; -MUCINEX 60600 MG/TA1 PO; -OMEGA-3 1000 MG1 CAP PO; -PRISTIQ 50 MG T50 MG PO; -TOPROL XL 25MG25 MG PO; -TYLENOL 500MG500 MG PO; -VITAMIN D31000 I1 PO
[2021-02-08 08:27] VITALS: BP 120/60; PULSE 78; TEMP 97.4
[2021-02-08] MEDS ORDERED: PRISTIQ 50 MG T50 MG PO (12:14)
[2021-02-08] MEDS ORDERED: TOPROL XL 25MG25 MG PO (12:15)
[2021-02-08] MEDS ORDERED: ASPIRIN E.C. 8181 MG PO (12:17)
[2021-02-08] MEDS ORDERED: DESYREL 50MG50 MG PO (12:18)
[2021-02-08] MEDS ORDERED: MUCINEX 60600 MG/TA1 PO (12:19)
[2021-02-08] MEDS ORDERED: TYLENOL 500MG500 MG PO (12:20)
[2021-02-08] MEDS ORDERED: OMEGA-3 1000 MG1 CAP PO (12:20)
== END 2021-02-08 09:00 | disposition still patient (30) ==
LOC: EUO 07:00
DX: N39.0 Urinary tract infection, site not specified (principal)
CPT/HCPCS: J0692

== ENCOUNTER 2021-02-08 11:03 | Day surgery (SDC) | payer MEDICARE ==
[~2021-02-08] VITALS: Ht 180.3 cm; Wt 67.9 kg
[2021-02-08] VITALS (9 sets, daily range): BP systolic 100–134; BP diastolic 52–78; PULSE 63–80; TEMP 97.3–98.4
[2021-02-08] MEDS ORDERED: PRISTIQ 50 MG T50 MG PO (12:14)
[2021-02-08] MEDS ORDERED: TOPROL XL 25MG25 MG PO (12:15)
[2021-02-08] MEDS ORDERED: ASPIRIN E.C. 8181 MG PO (12:17)
[2021-02-08] MEDS ORDERED: DESYREL 50MG50 MG PO (12:18)
[2021-02-08] MEDS ORDERED: MUCINEX 60600 MG/TA1 PO (12:19)
[2021-02-08] MEDS ORDERED: OMEGA-3 1000 MG1 CAP PO (12:20)
[2021-02-08] MEDS ORDERED: TYLENOL 500MG500 MG PO (12:20)
--- NOTE | 2021-02-08 16:15 | NUR ---
Patient alert and oriented, answers questions appropriately. See assessment. Gupta catheter patent, draining light pink urine, CBI infusing at slow rate. Post op exercises reveiwed with patient. SCDs on. Family at bedside. No c/o at this time.
--- NOTE | 2021-02-08 20:30 | NUR ---
UP TO BATHROOM, HAS BM AND BACK TO BED. NOTED BLOODY DRAINAGE FROM CATHETER, CARES GIVEN AT THIS TIME. IS ALERT AND ORIENTED. SL TO LEFT FOREARM, FLUSHES WELL. EDMONDS WITH CBI, URINE IS PINK. DENIES PAIN.
[2021-02-09 00:34] VITALS: BP 94/56; PULSE 88; TEMP 98.3
[2021-02-09 04:26] VITALS: BP 88/51; PULSE 83; TEMP 97.5
--- NOTE | 2021-02-09 04:30 | NUR ---
PT B/P , RESTARTED IVF AT 100CC/HR. URINE PINK.
[2021-02-09 05:46] VITALS: BP 101/57
[2021-02-09 07:29] VITALS: BP 96/63; PULSE 88; TEMP 98.1
--- NOTE | 2021-02-09 09:00 | NUR ---
Patient primed and pulled per orders. Primed with approximately 250 ml of CBI. Patient tolerated procedure well. Educated on 6 cup routine. No further needs at this time.
--- NOTE | 2021-02-09 09:00 | NUR ---
Patient is resting in bed, alert and oriented x4, vital signs stable. No pain, nausea or vomiting. Catheter was removed by SCOTTY Castro. Patient was assissted to take a shower. No further needs at the moment. Call light within reach.
[2021-02-09 11:39] VITALS: BP 114/66; PULSE 86; TEMP 98
--- NOTE | 2021-02-09 13:47 | NUR ---
Industrial Equipment Wirer met with the patient to complete intake. The patient lives in [place] with his neice/DPOA-HC, Reanna Floyd and nephew Kat Marshall. The patient has a cane, walker and is on 2L of oxygen at night. The patient is independent. The patient's PCP is Dr. Nohelia Plasencia and patient receives medications via mail from [facility] and locally [facility]. The patient has advanced directives in the EMR. The patient plans to return home at discharge. Reanna will provide transportation. SW staffed with the patient's nurse and she confirms he is independent in the room. *Discharge disposition: Home with family
[2021-02-09 15:58] VITALS: BP 117/70; PULSE 88; TEMP 97.7
--- NOTE | 2021-02-09 16:10 | NUR ---
Discharge education provided to patient. Educated on when to call provider and follow up appointment. Patient educated on increasing fluid intake. All questions answered. INT to left forarm discontinued by Ira FAJARDO. No further needs at this time.
--- NOTE | 2021-02-09 16:42 | NUR ---
Patient out by wheelchair with surgical staff.
== END 2021-02-09 16:42 | disposition home or self-care (01) ==
LOC: SDCO 11:03 → SURG 15:15 → SDCO 02-09 16:42
DX: N40.1 Benign prostatic hyperplasia with lower urinary tract symptoms (principal); N13.8 Other obstructive and reflux uropathy; E78.5 Hyperlipidemia, unspecified; K21.9 Gastro-esophageal reflux disease without esophagitis; Z20.822 Contact with and (suspected) exposure to COVID-19; M21.371 Foot drop, right foot; B02.29 Other postherpetic nervous system involvement; I25.2 Old myocardial infarction; J44.9 Chronic obstructive pulmonary disease, unspecified; M10.9 Gout, unspecified; F32.9 Major depressive disorder, single episode, unspecified; Z79.82 Long term (current) use of aspirin; Z95.0 Presence of cardiac pacemaker; Z87.891 Personal history of nicotine dependence; Z79.899 Other long term (current) drug therapy; Z98.61 Coronary angioplasty status; Z85.118 Personal history of other malignant neoplasm of bronchus and lung
CPT/HCPCS: OP; J0692; J2704; J3480; J7120

== ENCOUNTER 2021-04-26 07:05 | Outpatient (CLI) | payer MEDICARE ==
[~2021-04-26] VITALS: Ht 180.3 cm; Wt 67.7 kg
[~2021-04-26 07:05] MED LIST changes: +ASPIRIN E.C. 8181 MG PO; +MUCINEX 60600 MG/TA1 PO; +OMEGA-3 1000 MG1 CAP PO; +PRISTIQ 50 MG T50 MG PO; +TOPROL XL 25MG25 MG PO; +TYLENOL 500MG500 MG PO
[2021-04-26] MEDS ORDERED: CENTRUM SILVER1 TAB PO (07:50)
[2021-04-26] MEDS ORDERED: B-121000 MCG PO (07:50)
[2021-04-26] MEDS ORDERED: PROTONIX 40MG T40 MG PO (07:51)
[2021-04-26] MEDS ORDERED: ATROVENTNS0.03% NS (07:51)
[2021-04-26 07:52] VITALS: BP 108/66; PULSE 90
[2021-04-26] MEDS ORDERED: VITAMINC1000TA PO (07:52)
[2021-04-26] MEDS ORDERED: LIPITOR 80MG80 MG PO (07:52)
[2021-04-26] MEDS ORDERED: CALCIUM CARBON500 M1 PO (07:53)
[2021-04-26] MEDS ORDERED: OMNICEF 300MG300 MG PO (07:54)
[2021-04-26] MEDS ORDERED: DULOXETINE HCL40 MG PO (07:55)
[2021-04-26] MEDS ORDERED: VITAMIN D31000 I1 PO (07:55)
[2021-04-26] MEDS ORDERED: CYMBALTA 30MG30 MG PO (07:56)
[2021-04-26] MEDS ORDERED: FERROUSAL325 MG PO (07:56)
[2021-04-26 08:08] VITALS: BP 127/73; PULSE 89
--- NOTE | 2021-04-26 08:14 | NUR ---
Procedure completed,pt resting in bed,dressing observed clean,dry,intact.
[2021-04-26 08:15] VITALS: BP 113/91; PULSE 87
[2021-04-26 08:30] VITALS: BP 119/61; PULSE 79
--- NOTE | 2021-04-26 09:15 | NUR ---
Discharge instructions given to pt.Pt verbalizes understanding.Pt escorted out via wheelchair by this nurse.
== END 2021-04-26 09:20 ==
LOC: EUO 07:05
DX: R55 Syncope and collapse (principal); R83.9 Unspecified abnormal finding in cerebrospinal fluid

== ENCOUNTER → 2021-05-05 | Outpatient (CLI) | payer MEDICARE ==
[~2021-05-05] MED LIST changes: +CALCIUM CARBON500 M1 PO; +CENTRUM SILVER1 TAB PO; +CYMBALTA 30MG30 MG PO; +CYMBALTA 60MG60 MG PO; +DEPAKOTE ER 25250 MG PO; +DULOXETINE HCL40 MG PO; +FERROUSAL325 MG PO; +VITAMIN D31000 I1 PO
[2021-05-06 15:46] LABS: URINE TOTAL VOLUME 1350 mL
== END ==
LOC: COL.RAD 10:57
PROVIDERS: Psychiatry & Neurology Neurology
DX: R55 Syncope and collapse (principal); R79.9 Abnormal finding of blood chemistry, unspecified
CPT/HCPCS: Q9967

== ENCOUNTER 2021-06-05 19:08 | Inpatient (IN) | payer MEDICARE ==
[~2021-06-05] VITALS: Ht 182.9 cm; Wt 68.9 kg
[~2021-06-05 19:08] MED LIST changes: -CYMBALTA 60MG60 MG PO; -DEPAKOTE ER 25250 MG PO
[2021-06-05 20:22] LABS: HEMOGLOBIN 10.1 g/dl (13.5-18.0); MEAN CELL VOLUME 95 fl (80.0-100.0); MEAN CORPUSCULAR HEMOGLOBIN 31 pg (27.0-31.0); MEAN CORPUSCULAR HGB CONC 33 g/dl (33.0-37.0); MEAN PLATELET VOLUME 10.5 fl (7.4-10.4); PLATELET COUNT 259 K/mm3 (130-400); RED BLOOD COUNT 3.25 M/mm3 (4.20-5.60); REDCELL DISTRIBUTION WIDTH-CV 15.9 % (11.5-14.5)
[2021-06-05 20:38] LABS: ALANINE AMINOTRANSFERASE 10 U/L (0-55); ALBUMIN 3.2 gm/dL (3.4-4.8); ALKALINE PHOSPHATASE 80 U/L (40-150); ANION GAP 10 mmol/L (7-16); AST,SGOT 21 U/L (5-34); BILIRUBIN,TOTAL 0.7 mg/dL (0.2-1.2); BLOOD UREA NITROGEN 26 mg/dL (8-26); CALCIUM 8.8 mg/dL (8.4-10.2); CARBON DIOXIDE 24 mmol/L (23-31); CHLORIDE 103 mmol/L (98-107); CREATININE, serum 1.06 mg/dL (0.72-1.25); GLUCOSE 113 mg/dL (70-99); POTASSIUM 4.5 mmol/L (3.5-4.5); SODIUM 137 mmol/L (136-145)
[2021-06-05 20:45] LABS: TROPONIN-I < 0.010 ng/mL (0.00-0.033)
[2021-06-05 20:55] LABS: HEMATOCRIT 30.9 % (42.0-52.0)
[2021-06-05 20:56] LABS: ANISOCYTOSIS 1+; BAND 12 % (0-10); LYMPHOCYTE 10 % (20.0-51.0); NEUTROPHILS 72 % (42.0-75.2); POIKILOCYTOSIS 1+
[2021-06-05 20:57] LABS: HYPOCHROMIA 1+; OVALOCYTES 1+; PLATELET ESTIMATE NORMAL (NORMAL)
[2021-06-05 22:30] LABS: COLLECTION METHOD CLEAN CATCH
[2021-06-05 22:39] LABS: MUCOUS Present /lpf; PH 5 (5-8); URINE APPEARANCE Hazy; URINE BACTERIA None Seen /hpf; URINE BILIRUBIN Negative (NEGATIVE); URINE BLOOD Negative (NEGATIVE); URINE COLOR Yellow; URINE GLUCOSE Negative (NEGATIVE); URINE KETONE Negative (NEGATIVE); URINE LEUKOCYTE ESTERASE Negative (NEGATIVE); URINE NITRATE Negative (NEGATIVE); URINE PROTEIN(semi-quant) Negative (NEGATIVE); URINE UROBILINOGEN Negative (NEGATIVE)
--- NOTE | 2021-06-06 00:26 | NUR ---
ADMIT FROM ER PER CART W BELONGINGS. PT REPORT FEELING WEAK, SOA AND GENERALLY NOT WELL OVER LAST FEW DAYS. USUALLY ON USES O2 AT HS BUT HAS NEEDED IT DURING DAY WELL. LIVES W FAMILY. ALERT AND OX3. DENIES PAIN. USES CANE FOR AMBULATION. PACEMAKER TO RT CHEST, PORT A CATH TO LEFT. NO RECENT CHEMO OR RADITION S/P LUNG CA IN REMISSION. PATRICK AT BEDSIDE, REVIEWING ORDER. HX AND ASSESSMENT OBTAINED. CALL LIGHT WI REACH. BED ALARM ON.
[2021-06-06] MEDS ORDERED: CYMBALTA 60MG60 MG PO (00:39)
[2021-06-06] MEDS ORDERED: DEPAKOTE ER 25250 MG PO (00:50)
--- NOTE | 2021-06-06 01:27 | NUR ---
REPORT D DIMER RESULTS TO SANDRA NGUYEN. PLACING ORDERS.
[2021-06-06 03:16] VITALS: BP 105/59; PULSE 82; TEMP 97.4
--- NOTE | 2021-06-06 05:19 | NUR ---
Pt down to CT for scan r/o PE. Seizure precaution pads on bed. AM meds given. Needs met.
[2021-06-06 07:43] VITALS: BP 112/58; PULSE 80; TEMP 97.7
--- NOTE | 2021-06-06 09:21 | NUR ---
SW met with the patient to discuss discharge plan. The patient lives in [place] with his niece, Reanna Rodriguez (ph#[phone]), and nephew (ph#[phone]). He reports independence with ADLs and has a cane, walker, and nocturnal oxygen. He believes he gets his oxygen from [facility]. The patient states that he has private duty services from [facility] on // for two hours for companionship. His PCP is Dr. Nohelia Plasencia and he receives his medications from [facility]. The patient's DPOA-HC is in EMR and it designates his niece, Reanna, and brother, Donovan Ortiz (ph#[phone]). Donovan lives in [place]. The patient plans on returning home with his niece and nephew upon discharge. SW discussed home health service and it's benefits. The patient reports that he is doing well at home and does not think he needs any home health at this time. PT/OT have been ordered. SW attempted to contact the patient's niece, Reanna. SW left her a voicemail. WILMER then contacted the patient's nephew, Bunny, to review the above. Bunny reports no concerns with the patient returning home upon discharge. SW to continue to monitor. *Discharge plan: home with family and private duty services*
--- NOTE | 2021-06-06 09:38 | NUR ---
Initial visit; Patient thanked Pumper Gager Apprentice for looking in on him, offering prayer and God's blessings. Pumper Gager Apprentice will keep him in her prayers.
--- NOTE | 2021-06-06 11:15 | NUR ---
PT RESTING IN BED. MORNING MEDICATIONS GIVEN. SHIFT ASSESSMENT COMPLETED. PT DENIES ANY PAIN. IS ON 2L NC AND DENIES ANY SOB. DENIES PAIN. WILL CONTINUE TO MONITOR.
[2021-06-06 11:38] VITALS: BP 101/53; PULSE 76; TEMP 97.5
[2021-06-06 16:21] VITALS: BP 108/53; PULSE 81; TEMP 97.8
[2021-06-06 19:37] VITALS: BP 116/55; PULSE 87; TEMP 97.9
--- NOTE | 2021-06-06 19:50 | NUR ---
Patient sitting up and eating dinner upon enter the room. Patient pleasant, alert and oriented. Patient denies pain or discomfort. Patient currently on 2L oxygen via NC. Breathing even and unlabored at this time. Patient tolerating PO intake. No N/V noted. All scheduled meds given per OCT. Call light in reach. Will continue to monitor.
[2021-06-07 00:06] VITALS: BP 112/58; PULSE 93; TEMP 97.5
[2021-06-07 04:30] VITALS: BP 125/60; PULSE 78; TEMP 97.8
[2021-06-07 06:30] LABS: MEAN CELL VOLUME 95 fl (80.0-100.0); MEAN CORPUSCULAR HGB CONC 33 g/dl (33.0-37.0); MEAN PLATELET VOLUME 11.1 fl (7.4-10.4); PLATELET COUNT 213 K/mm3 (130-400); RED BLOOD COUNT 2.78 M/mm3 (4.20-5.60); REDCELL DISTRIBUTION WIDTH-CV 15.7 % (11.5-14.5)
[2021-06-07 06:33] LABS: HEMATOCRIT 26.5 % (42.0-52.0); HEMOGLOBIN 8.7 g/dl (13.5-18.0); MEAN CORPUSCULAR HEMOGLOBIN 31 pg (27.0-31.0)
[2021-06-07 06:47] LABS: CALCIUM 8.4 mg/dL (8.4-10.2); CREATININE, serum 0.83 mg/dL (0.72-1.25); POTASSIUM 4.4 mmol/L (3.5-4.5)
--- NOTE | 2021-06-07 07:25 | NUR ---
RECEIVED REPORT FROM SCOTTY SINGH. PT ASLEEP IN BED. BREATHING REG/UNLABORED. CALL PERALES IN REACH. SEIZURE PRECAUTIONS IN PLACE
[2021-06-07 07:26] LABS: ANISOCYTOSIS 1+; BAND 8 % (0-10); HYPOCHROMIA 1+; LYMPHOCYTE 8 % (20.0-51.0); NEUTROPHILS 82 % (42.0-75.2); PLATELET ESTIMATE NORMAL (NORMAL)
[2021-06-07 07:53] VITALS: BP 129/63; PULSE 78; TEMP 97.5
[2021-06-07 12:00] VITALS: BP 103/60; PULSE 85; TEMP 97.5
--- NOTE | 2021-06-07 13:16 | NUR ---
Medical Diagnostic Radiographer visit, no needs right now.
[2021-06-07] MEDS ORDERED: PREDNISONE20 MG PO (13:25)
[2021-06-07] MEDS ORDERED: OMNICEF 300MG300 MG PO (13:25)
--- NOTE | 2021-06-07 14:12 | NUR ---
PT is recommending home. The patient is to discharge back home with his family today, 06/07, and resume his private duty services from [facility]. No additional needs at this time.
--- NOTE | 2021-06-07 16:34 | NUR ---
DISCHARGE INSTRUCTIONS REVIEWED WITH PT. QUESTIONS INVITED AND ANSWERED. HUSEYIN Chandra/Sierra. PT ESCORTED TO UBER WAITING BY [employer] EMPLOYEE
== END 2021-06-07 15:45 | disposition home or self-care (01) | DRG 190 ==
LOC: COL.ER 19:08 → MEDICAL 23:17
PROVIDERS: Internal Medicine; Physician Assistant; ADMIT Internal Medicine
DX: J44.1 Chronic obstructive pulmonary disease with (acute) exacerbation (principal); J18.9 Pneumonia, unspecified organism; I50.32 Chronic diastolic (congestive) heart failure; M48.54XA Collapsed vertebra, not elsewhere classified, thoracic region, initial encounter for fracture; E44.0 Moderate protein-calorie malnutrition; J93.9 Pneumothorax, unspecified; J44.0 Chronic obstructive pulmonary disease with (acute) lower respiratory infection; D64.9 Anemia, unspecified; Z66 Do not resuscitate; I48.0 Paroxysmal atrial fibrillation; I25.10 Atherosclerotic heart disease of native coronary artery without angina pectoris; F32.A Depression, unspecified; G47.00 Insomnia, unspecified; E03.9 Hypothyroidism, unspecified; K21.9 Gastro-esophageal reflux disease without esophagitis; G40.909 Epilepsy, unspecified, not intractable, without status epilepticus; E78.5 Hyperlipidemia, unspecified; N40.0 Benign prostatic hyperplasia without lower urinary tract symptoms; T38.0X5A Adverse effect of glucocorticoids and synthetic analogues, initial encounter; Z85.118 Personal history of other malignant neoplasm of bronchus and lung; Z95.0 Presence of cardiac pacemaker; Z95.5 Presence of coronary angioplasty implant and graft; I25.2 Old myocardial infarction; Z88.0 Allergy status to penicillin; Z79.82 Long term (current) use of aspirin; Z68.20 Body mass index [BMI] 20.0-20.9, adult
CPT/HCPCS: 99223-AI; 99232-AI; 99239; J0692; J1644; J1650; J2930; J7030; Q9967

== ENCOUNTER 2021-08-10 11:16 | Inpatient (IN) | payer MEDICARE ==
[~2021-08-10] VITALS: Ht 177.8 cm; Wt 66.4 kg
[~2021-08-10 11:16] MED LIST changes: +CYMBALTA 60MG60 MG PO; +DEPAKOTE ER 25250 MG PO
[2021-08-10 11:59] LABS: MEAN CELL VOLUME 97 fl (80.0-100.0); MEAN CORPUSCULAR HGB CONC 33 g/dl (33.0-37.0); MEAN PLATELET VOLUME 10.4 fl (7.4-10.4); PLATELET COUNT 241 K/mm3 (130-400); RED BLOOD COUNT 3.03 M/mm3 (4.20-5.60); REDCELL DISTRIBUTION WIDTH-CV 17.5 % (11.5-14.5)
[2021-08-10 12:05] LABS: HEMATOCRIT 29.4 % (42.0-52.0); HEMOGLOBIN 9.6 g/dl (13.5-18.0); MEAN CORPUSCULAR HEMOGLOBIN 32 pg (27-31)
[2021-08-10 12:11] LABS: ALANINE AMINOTRANSFERASE 11 U/L (0-55); ALBUMIN 3.2 gm/dL (3.4-4.8); ALKALINE PHOSPHATASE 67 U/L (40-150); ANION GAP 11 mmol/L (7-16); AST,SGOT 19 U/L (5-34); BILIRUBIN,TOTAL 0.8 mg/dL (0.2-1.2); BLOOD UREA NITROGEN 18 mg/dL (8-26); CALCIUM 8.4 mg/dL (8.4-10.2); CARBON DIOXIDE 26 mmol/L (23-31); CHLORIDE 98 mmol/L (98-107); CREATININE, serum 0.79 mg/dL (0.72-1.25); GLUCOSE 94 mg/dL (70-99); POTASSIUM 3.8 mmol/L (3.5-4.5); SODIUM 135 mmol/L (136-145); TOTAL PROTEIN 6.4 gm/dL (6.2-8.1)
[2021-08-10 12:21] LABS: TROPONIN-I < 0.010 ng/mL (0.00-0.033)
[2021-08-10 12:32] LABS: ANISOCYTOSIS 1+; BAND 7 % (0-10); HYPOCHROMIA 1+; LYMPHOCYTE 4 % (20.0-51.0); NEUTROPHILS 87 % (42.0-75.2)
[2021-08-10 12:33] LABS: PLATELET ESTIMATE NORMAL (NORMAL)
--- NOTE | 2021-08-10 14:25 | NUR ---
Patient arrived from ER to room 317 at this time, CT is coming get him to go down for a CT chest
[2021-08-10 17:30] VITALS: BP 122/88; PULSE 81; TEMP 98.5
[2021-08-10 19:39] VITALS: BP 125/70; PULSE 79; TEMP 98.3
[2021-08-10 23:52] VITALS: BP 130/74; PULSE 63; TEMP 98
[2021-08-11 03:29] VITALS: BP 127/64; PULSE 80; TEMP 98
--- NOTE | 2021-08-11 05:25 | NUR ---
NO CLINICAL CHANGES OVERNIGHT. PT REMAINS ON 2L OF 02. N/S INFUSING TO FA IV. ALL NEEDS MET THIS SHIFT. CALL LIGHT WITHIN REACH.
[2021-08-11 07:50] VITALS: BP 136/63; PULSE 86; TEMP 98.6
[2021-08-11 09:12] LABS: BASO % 0.2 % (0.0-2.0); EOS % 0.2 % (0.0-4.0); GRAN # 2.4 K/mm3 (1.4-6.5); GRAN % 54.5 % (42.2-75.2); LYMPH # 1.5 K/mm3 (1.2-3.4); LYMPH % 32.6 % (20.0-51.0); MEAN CELL VOLUME 95 fl (80.0-100.0); MEAN CORPUSCULAR HGB CONC 33 g/dl (33.0-37.0); MEAN PLATELET VOLUME 10.7 fl (7.4-10.4); MONO # 0.5 K/mm3 (0.1-0.6); MONO % 11.8 % (1.7-9.3); PLATELET COUNT 184 K/mm3 (130-400); RED BLOOD COUNT 2.93 M/mm3 (4.20-5.60); REDCELL DISTRIBUTION WIDTH-CV 17.3 % (11.5-14.5)
--- NOTE | 2021-08-11 09:12 | NUR ---
The patient is in isolation for COVID. SW contacted the patient to discuss discharge plan. The patient lives in [place] with his niece, Reanna Rodriguez (ph#[phone]), and nephew, Bunny Abraham (ph#[phone]). He reports independence with ADLs and has a cane, walker, and nocturnal oxygen from [facility]. He states that that he receives private duty services M/W/F from [id number] from [facility]. He states that they help him with meals and chores. The patient's PCP is Dr. Nohelia Plasencia and he receives his medications from [facility] in [facility]. The patient's DPOA-HC is in EMR and it designates his niece, Reanna, and his brother, Donovan Ortiz (ph#[phone], [place]). The patient plans on returning home with his family and resuming private duty services upon discharge. SW discussed home health services for nursing and therapy. The patient declined home health at this time and states that the services he already has is sufficient. SW to continue to monitor. *Discharge plan: home with family and private duty services*
[2021-08-11 09:13] LABS: HEMATOCRIT 27.9 % (42.0-52.0); HEMOGLOBIN 9.3 g/dl (13.5-18.0); MEAN CORPUSCULAR HEMOGLOBIN 32 pg (27-31)
[2021-08-11 09:28] LABS: ALBUMIN 2.7 gm/dL (3.4-4.8); BILIRUBIN,DIRECT 0.3 mg/dL (0.0-0.5); BILIRUBIN,TOTAL 0.5 mg/dL (0.2-1.2); CALCIUM 7.7 mg/dL (8.4-10.2); CREATININE, serum 0.66 mg/dL (0.72-1.25); POTASSIUM 3.9 mmol/L (3.5-4.5); TOTAL PROTEIN 5.7 gm/dL (6.2-8.1)
[2021-08-11 11:45] VITALS: BP 112/53; PULSE 97; TEMP 98.4
[2021-08-11 15:16] VITALS: BP 123/80; PULSE 89; TEMP 98.4
--- NOTE | 2021-08-11 15:18 | NUR ---
Yane, at [facility], contacted WILMER. Yane reports that they had just accepted the patient for services and will be able to start him on services upon discharge. SW contacted the patient to follow up on this. The patient reports that he was not aware this had been set up for him, but he is open to their services and discharging home with home health. *Discharge plan: home with family, home health, and private duty services.
[2021-08-11 19:35] VITALS: BP 115/54; PULSE 80; TEMP 97.8
[2021-08-11 23:12] VITALS: BP 118/56; PULSE 56; TEMP 97.8
[2021-08-12 03:52] VITALS: BP 111/62; PULSE 75; TEMP 98.2
--- NOTE | 2021-08-12 05:06 | NUR ---
PT WORE 2L NC OVERNIGHT, SATURATIONS LOW 90'S, AFEBRILE, VSS, DENIES N,V,. PT REGAINING STRENGTH AND STATES HE FEELS MUCH BETTER , ABX ADMINISTERED ORDERED, IMODIUM ADMINISTERED ORDERED; PT HAS FOUND SOME RELIEF. ALL NEEDS MET THIS SHIFT, CALL LIGHT WITHIN REACH.
[2021-08-12 05:39] LABS: GRAN # 1.9 K/mm3 (1.4-6.5); GRAN % 45.3 % (42.2-75.2); LYMPH # 1.8 K/mm3 (1.2-3.4); LYMPH % 40.9 % (20.0-51.0); MEAN CELL VOLUME 95 fl (80.0-100.0); MEAN CORPUSCULAR HGB CONC 33 g/dl (33.0-37.0); MEAN PLATELET VOLUME 10.9 fl (7.4-10.4); MONO # 0.6 K/mm3 (0.1-0.6); MONO % 13.1 % (1.7-9.3); PLATELET COUNT 180 K/mm3 (130-400); RED BLOOD COUNT 3.07 M/mm3 (4.20-5.60); REDCELL DISTRIBUTION WIDTH-CV 17.3 % (11.5-14.5)
[2021-08-12 05:49] LABS: HEMATOCRIT 29.2 % (42.0-52.0); HEMOGLOBIN 9.7 g/dl (13.5-18.0); MEAN CORPUSCULAR HEMOGLOBIN 32 pg (27-31)
[2021-08-12 06:06] LABS: CALCIUM 7.8 mg/dL (8.4-10.2); CREATININE, serum 0.67 mg/dL (0.72-1.25); POTASSIUM 3.9 mmol/L (3.5-4.5)
[2021-08-12 07:49] VITALS: BP 130/65; PULSE 75; TEMP 97.5
[2021-08-12 11:30] VITALS: BP 110/60; PULSE 86; TEMP 97.2
[2021-08-12 15:30] VITALS: BP 106/60; PULSE 75; TEMP 97.7
--- NOTE | 2021-08-12 16:53 | NUR ---
PT DISCHARGE HOME PER ORDERS ON STABLE CONIDTION. D/C INSTRUCTIONS MEDICATION AND FOLLOW UP REVIEWED WITH PT.QUESTIONS AND CONCERNS ADDRESSED
--- NOTE | 2021-08-15 14:22 | NUR ---
Yane, at [facility], left WILMER a voicemail about the patient's discharge status. The patient discharged on Saturday, 08/12. WILMER notified and faxed discharge orders to Zainab at [facility]. The patient discharged back home with his family on 08/22 with home health services for custodial/PT/OT from [facility] and continued private duty services from [facility].
== END 2021-08-12 16:30 | disposition home or self-care (01) | DRG 177 ==
LOC: COL.ER 11:16 → MEDICAL 13:39
PROVIDERS: Emergency Medicine; Physician Assistant; ADMIT Student in an Organized Health Care Education/Training Program
PROC: XW033E5 Introduction of Remdesivir Anti-infective into Peripheral Vein, Percutaneous Approach, New Technology Group 5 (ICD-10-PCS; principal; 2021-08-10)
DX: U07.1 COVID-19 (principal); J96.01 Acute respiratory failure with hypoxia; C34.91 Malignant neoplasm of unspecified part of right bronchus or lung; I50.32 Chronic diastolic (congestive) heart failure; I48.0 Paroxysmal atrial fibrillation; I25.10 Atherosclerotic heart disease of native coronary artery without angina pectoris; G40.909 Epilepsy, unspecified, not intractable, without status epilepticus; Z66 Do not resuscitate; E03.9 Hypothyroidism, unspecified; K21.9 Gastro-esophageal reflux disease without esophagitis; F32.A Depression, unspecified; D64.9 Anemia, unspecified; E78.5 Hyperlipidemia, unspecified; G47.00 Insomnia, unspecified; N40.0 Benign prostatic hyperplasia without lower urinary tract symptoms; I77.819 Aortic ectasia, unspecified site; J43.9 Emphysema, unspecified; Z79.01 Long term (current) use of anticoagulants; Z95.0 Presence of cardiac pacemaker; I25.2 Old myocardial infarction; Z95.5 Presence of coronary angioplasty implant and graft; Z99.81 Dependence on supplemental oxygen; Z79.82 Long term (current) use of aspirin; Z79.52 Long term (current) use of systemic steroids; Z87.891 Personal history of nicotine dependence; Z23 Encounter for immunization
CPT/HCPCS: 99223-AI; 99233-AI; 99239; J0248; J0696; J1100; J1650; J7030; J7050; Q9967

== ENCOUNTER 2021-08-16 19:52 | Observation (INO) | payer MEDICARE ==
[~2021-08-16] VITALS: Ht 177.8 cm; Wt 65.2 kg
[2021-08-16 22:17] LABS: BASO % 0.2 % (0.0-2.0); EOS % 0.3 % (0.0-4.0); GRAN # 4.4 K/mm3 (1.4-6.5); GRAN % 74.6 % (42.2-75.2); LYMPH # 0.9 K/mm3 (1.2-3.4); LYMPH % 14.9 % (20.0-51.0); MEAN CELL VOLUME 97 fl (80.0-100.0); MEAN CORPUSCULAR HGB CONC 33 g/dl (33.0-37.0); MEAN PLATELET VOLUME 10.9 fl (7.4-10.4); MONO # 0.6 K/mm3 (0.1-0.6); MONO % 9.2 % (1.7-9.3); PLATELET COUNT 137 K/mm3 (130-400); RED BLOOD COUNT 2.76 M/mm3 (4.20-5.60); REDCELL DISTRIBUTION WIDTH-CV 17.3 % (11.5-14.5)
[2021-08-16 22:18] LABS: HEMATOCRIT 26.7 % (42.0-52.0); HEMOGLOBIN 8.7 g/dl (13.5-18.0); MEAN CORPUSCULAR HEMOGLOBIN 32 pg (27-31)
[2021-08-16 22:26] LABS: ALANINE AMINOTRANSFERASE 11 U/L (0-55); ALBUMIN 2.5 gm/dL (3.4-4.8); ALKALINE PHOSPHATASE 60 U/L (40-150); ANION GAP 8 mmol/L (7-16); AST,SGOT 18 U/L (5-34); BILIRUBIN,TOTAL 0.7 mg/dL (0.2-1.2); BLOOD UREA NITROGEN 19 mg/dL (8-26); C-REACTIVE PROTEIN 5.86 mg/dL (0.00-0.50); CALCIUM 7.7 mg/dL (8.4-10.2); CARBON DIOXIDE 27 mmol/L (23-31); CHLORIDE 101 mmol/L (98-107); CREATININE, serum 0.86 mg/dL (0.72-1.25); GLUCOSE 83 mg/dL (70-99); SODIUM 136 mmol/L (136-145); TOTAL PROTEIN 5.4 gm/dL (6.2-8.1)
[2021-08-16 22:32] LABS: TROPONIN-I < 0.010 ng/mL (0.00-0.033)
[2021-08-17] MEDS ORDERED: FLORINEF ACETA0.1 MG PO (00:15)
[2021-08-17] MEDS ORDERED: PROAMATINE 5MG T5 MG PO (00:17)
[2021-08-17] MEDS ORDERED: KEPPRA XR500 MG PO (00:18)
[2021-08-17] MEDS ORDERED: FLOMAX 0.40.4 MG/CAP PO (00:19)
[2021-08-17] MEDS ORDERED: FOSAMAX 70MG TA70 MG PO (00:22)
[2021-08-17] MEDS ORDERED: SYNTHROID0.1 MG/TAB PO (00:23)
[2021-08-17 00:24] LABS: ARTERIAL BLD GAS O2 SATURATION 96.6 % (92-100); ARTERIAL BLD GAS TCO2 CT 26.1; ARTERIAL BLOOD GAS BASE EXCESS 0.9 (-2-2); ARTERIAL BLOOD GAS PCO2 37.7 mmHg (35-45); ARTERIAL BLOOD GAS PO2 86.3 mmHg (80-100); ARTERIAL BLOOD GAS pH 7.44 (7.35-7.45)
[2021-08-17 01:02] VITALS: BP 111/56; PULSE 84; TEMP 97.9
[2021-08-17 01:30] LABS: INR 1.3 (0.8-3.0); PROTHROMBIN TIME 14.9 SECONDS (9.7-12.8)
--- NOTE | 2021-08-17 01:40 | NUR ---
Patient arrived from ER. Alert and oriented x 4, and able to make needs known. Denies pain and discomfort. Port to left chest accessed. LS CTA. HRR. Capillary refill less than 3 seconds. Non-tenting skin turgor. BSAx4. Abdomen soft and non-tender No edema. Patient resting in bed with call light within reach. Bed alarm on.
[2021-08-17 05:40] VITALS: BP 103/57; PULSE 81; TEMP 98.3
--- NOTE | 2021-08-17 06:00 | NUR ---
Continues on oxygen at 2 L/min via NC, patient's baseline is 2 L at night. Took patient down for CT. Unsure if he had a power port, so new IV site started to left forearm for contrast. Continues on IVF per orders. Voices no questions, needs, or concerns at this time. In bed with call light within reach. Bed alarm on.
[2021-08-17 06:28] LABS: COLLECTION METHOD CLEAN CATCH
[2021-08-17 06:39] LABS: PH 7 (5-8); SQUAMOUS EPITHELIAL 0-2 /hpf (0-10); URINE APPEARANCE Clear (CLEAR/HAZY); URINE BACTERIA None Seen /hpf (NONE SEEN); URINE BILIRUBIN Negative (NEGATIVE); URINE BLOOD Negative (NEGATIVE); URINE COLOR Yellow (YELLOW); URINE GLUCOSE Negative (NEGATIVE); URINE KETONE Negative (NEGATIVE); URINE LEUKOCYTE ESTERASE Negative (NEGATIVE); URINE NITRATE Negative (NEGATIVE); URINE PROTEIN(semi-quant) Negative (NEGATIVE); URINE RBC None Seen /hpf (0-2); URINE UROBILINOGEN Negative (NEGATIVE)
[2021-08-17 07:42] VITALS: BP 127/75; PULSE 84; TEMP 97.5
--- NOTE | 2021-08-17 09:55 | NUR ---
MORNING MEDICATIONS GIVEN. SHIFT ASSESSMENT COMPLETED. PT IN PLEASANT MOOD, SITTING UP IN BED. PORT FLUSHES AND HAS GOOD BLOOD RETURN. DENIES ANY PAIN OR SOB. CURRENTLY ON 2-3L VIA IA. WILL CONTINUE TO MONITOR.
--- NOTE | 2021-08-17 10:58 | NUR ---
The patient is COVID positive. SW attempted to contact the patient. He did not answer. WILMER then contacted the patient's niece, Reanna (ph#[phone]), to complete intake. The patient lives in [place] with Reanna and Reanna's . She reports that the patient is independent with ADLs, but was having some troubles yesterday. He uses a cane and also has walkers available and nocturnal oxygen from [employer]. The patient has private duty services on //, but they have been suspended for right now, due to the patient having COVID. He was also set up with [facility] for assisted/PT/OT. Reanna reports that [facility] was unable to see the patient before he came back to the hospital. The patient's PCP is Dr. Nohelia Plasencia and he receives his medications from [facility] in [place]. The patient's DPOA-HC is in EMR and it designates Reanna and his brother, Donovan Ortiz (ph#[phone]). Reanna reports that the plan is for the patient to return back home with her and resume services from [facility]. WILMER notified and faxed updates to Zainab at [facility]. The patient is currently on 3 liters of oxygen. SW to continue to follow. *Discharge plan: home with family and home health*
[2021-08-17 12:27] VITALS: BP 116/58; PULSE 80; TEMP 97.5
[2021-08-17 16:27] VITALS: BP 138/66; PULSE 78; TEMP 97.3
[2021-08-17 20:20] VITALS: BP 125/58; PULSE 86; TEMP 97.8
--- NOTE | 2021-08-17 22:21 | NUR ---
Patient assesed around 2129. Alert and oriented x 4, and able to make needs knowon. Denies pain and discomfort. Port to left chest, and peripheral INT to left forearm. On oxygen at 2 L/min via NC, baseline at HS. LS CTA in upper lobes, diminished in lower. Productive cough. Reminded that we need sputum sample and voiced understanding. Voices no further questions, needs, or concerns at this time. In bed with call light within reach.
[2021-08-18 01:12] VITALS: BP 138/66; PULSE 69; TEMP 97.9
[2021-08-18 04:41] VITALS: BP 117/60; PULSE 75; TEMP 97.7
--- NOTE | 2021-08-18 06:07 | NUR ---
Patient has been resting in bed with call light within reach. Denies pain and discomfort. Voices no questions, needs, or concerns at this time. In bed with call light within reach.
[2021-08-18 06:08] LABS: GRAN # 2.9 K/mm3 (1.4-6.5); LYMPH # 0.6 K/mm3 (1.2-3.4); MEAN CELL VOLUME 96 fl (80.0-100.0); MEAN CORPUSCULAR HGB CONC 33 g/dl (33.0-37.0); MEAN PLATELET VOLUME 12.4 fl (7.4-10.4); MONO # 0.4 K/mm3 (0.1-0.6); MONO % 11.2 % (1.7-9.3); PLATELET COUNT 127 K/mm3 (130-400); RED BLOOD COUNT 2.56 M/mm3 (4.20-5.60)
[2021-08-18 06:15] LABS: HEMATOCRIT 24.6 % (42.0-52.0); HEMOGLOBIN 8.2 g/dl (13.5-18.0); MEAN CORPUSCULAR HEMOGLOBIN 32 pg (27-31)
[2021-08-18 06:29] LABS: C-REACTIVE PROTEIN 6.43 mg/dL (0.00-0.50); CALCIUM 7.9 mg/dL (8.4-10.2); CREATININE, serum 0.63 mg/dL (0.72-1.25); POTASSIUM 3.7 mmol/L (3.5-4.5)
[2021-08-18 08:01] VITALS: BP 106/54; PULSE 74; TEMP 97.7
--- NOTE | 2021-08-18 10:01 | NUR ---
PT RESTING IN BED. MORNING MEDICATIONS GIVEN. SHIFT ASSESSMENT COMPLETED. DENIES ANY PAIN, STATES HE FEELS LIKE HIS NORMAL SELF. CURRENTLY ON 2L NC AT NIGHT, 1L DURING THE DAY. EXERCISE OXIMETRY ORDERS IN PLACE. POSSIBLE DISCHARGE. WILL CONTINUE TO MONITOR. PORT FLUSHES AND HAS GOOD BLOOD RETURN.
[2021-08-18] MEDS ORDERED: PREDNISONE10 MG PO (10:06)
[2021-08-18 11:20] VITALS: BP 120/71; PULSE 80; TEMP 98
--- NOTE | 2021-08-18 14:35 | NUR ---
The patient is ready to discharge today. An exercise oximetry was ordered. RT notified WILMER that the patient qualified for 2 liters continuously. The patient's RN informed WILMER that she was able to update the patient's niece, Reanna, and she requested more tubing for the patient. SW contacted and updated Fang at [facility]. Fang reports that they do not need a new order and the patient already has portable tanks. Fang reports that they will get the patient new tubing. SW updated the patient. He confirms that he does have portable tanks at home. SW updated the patient's niece, Reanna. Reanan reports that she will head up to the hospital now to picking machine operator the patient. SW updated the RN. The patient is to discharge back home with his niece today, 08/18, with home health services for half-way/PT/OT from [facility] and he will continue his private duty services, once out of isolation. WILMER notified and faxed discharge orders to Zainab at [facility]. No additional needs at this time.
--- NOTE | 2021-08-18 15:04 | NUR ---
DISCHARGE INSTRUCTIONS GIVEN. PORT ACCESS D/C. IV ACCESS D/C.
== END 2021-08-18 15:05 | disposition home or self-care (01) ==
LOC: COL.ER 19:52 → MEDICAL 23:45
PROVIDERS: Nurse Practitioner; Nurse Practitioner Family; Student in an Organized Health Care Education/Training Program; ADMIT Internal Medicine
DX: J96.01 Acute respiratory failure with hypoxia (principal); U07.1 COVID-19; J44.9 Chronic obstructive pulmonary disease, unspecified; I95.9 Hypotension, unspecified; I50.30 Unspecified diastolic (congestive) heart failure; I25.10 Atherosclerotic heart disease of native coronary artery without angina pectoris; I25.2 Old myocardial infarction; E78.5 Hyperlipidemia, unspecified; I48.0 Paroxysmal atrial fibrillation; I49.5 Sick sinus syndrome; E03.9 Hypothyroidism, unspecified; G40.909 Epilepsy, unspecified, not intractable, without status epilepticus; D64.9 Anemia, unspecified; K21.9 Gastro-esophageal reflux disease without esophagitis; G47.00 Insomnia, unspecified; N40.0 Benign prostatic hyperplasia without lower urinary tract symptoms; F32.A Depression, unspecified; Z66 Do not resuscitate; Z95.5 Presence of coronary angioplasty implant and graft; Z95.0 Presence of cardiac pacemaker; Z87.891 Personal history of nicotine dependence; Z92.21 Personal history of antineoplastic chemotherapy; Z98.890 Other specified postprocedural states; Z85.118 Personal history of other malignant neoplasm of bronchus and lung; Z92.3 Personal history of irradiation; Z79.899 Other long term (current) drug therapy; Z79.890 Hormone replacement therapy; Z79.82 Long term (current) use of aspirin
CPT/HCPCS: G0378; J0692; J1100; J1644; J1650; J7030; J7040; J7512; Q9967

== ENCOUNTER 2021-09-25 11:03 | Emergency (ER) | payer MEDICARE ==
[~2021-09-25] VITALS: Ht 177.8 cm; Wt 70.0 kg
[~2021-09-25 11:03] MED LIST changes: +FLORINEF ACETA0.1 MG PO; +KEPPRA XR500 MG PO; +PREDNISONE10 MG PO; +PROAMATINE 5MG T5 MG PO; +SYNTHROID0.1 MG/TAB PO
[2021-09-25 11:16] VITALS: TEMP 98.5
[2021-09-25 11:53] LABS: BASO % 0.3 % (0.0-2.0); EOS % 0.5 % (0.0-4.0); GRAN # 5.4 K/mm3 (1.4-6.5); GRAN % 70.1 % (42.2-75.2); LYMPH # 1.2 K/mm3 (1.2-3.4); LYMPH % 14.9 % (20.0-51.0); MEAN CELL VOLUME 102 fl (80.0-100.0); MEAN CORPUSCULAR HGB CONC 32 g/dl (33.0-37.0); MEAN PLATELET VOLUME 11.2 fl (7.4-10.4); MONO % 13.3 % (1.7-9.3); PLATELET COUNT 196 K/mm3 (130-400); RED BLOOD COUNT 3.01 M/mm3 (4.20-5.60); REDCELL DISTRIBUTION WIDTH-CV 15.5 % (11.5-14.5)
[2021-09-25 11:55] LABS: HEMATOCRIT 30.7 % (42.0-52.0); HEMOGLOBIN 9.7 g/dl (13.5-18.0); MEAN CORPUSCULAR HEMOGLOBIN 32 pg (27-31)
[2021-09-25 12:20] LABS: ALBUMIN 2.8 gm/dL (3.4-4.8); BILIRUBIN,TOTAL 0.7 mg/dL (0.2-1.2); CALCIUM 8.1 mg/dL (8.4-10.2); CREATININE, serum 0.79 mg/dL (0.72-1.25); TOTAL PROTEIN 6.5 gm/dL (6.2-8.1)
[2021-09-25 13:40] VITALS: BP 109/60
[2021-09-25 13:43] VITALS: PULSE 99
== END 2021-09-25 14:02 | disposition home or self-care (01) ==
LOC: COL.ER 11:03
PROVIDERS: Student in an Organized Health Care Education/Training Program
DX: R06.00 Dyspnea, unspecified (principal); J98.4 Other disorders of lung; J44.9 Chronic obstructive pulmonary disease, unspecified; I25.2 Old myocardial infarction; Z87.891 Personal history of nicotine dependence; Z85.118 Personal history of other malignant neoplasm of bronchus and lung; Z79.82 Long term (current) use of aspirin; Z79.899 Other long term (current) drug therapy

== ENCOUNTER 2021-10-05 16:35 | Emergency (ER) | payer MEDICARE ==
[2021-10-05 19:08] VITALS: BP 96/74; PULSE 117; TEMP 98.8
== END 2021-10-05 19:15 | disposition home or self-care (01) ==
LOC: COL.ER 16:35
DX: S01.81XA Laceration without foreign body of other part of head, initial encounter (principal); Z87.891 Personal history of nicotine dependence; Z79.82 Long term (current) use of aspirin; W01.0XXA Fall on same level from slipping, tripping and stumbling without subsequent striking against object, initial encounter; Y92.242 Post office as the place of occurrence of the external cause; S02.2XXA Fracture of nasal bones, initial encounter for closed fracture